=== PATIENT | male | born 1935 | race Caucasian/White ===

== ENCOUNTER 2018-01-21 10:50 | Inpatient (IN) | payer MEDICARE, SELFPAY ==
[2018-01-21] VITALS (107 sets, daily range): BP systolic 120–212; BP diastolic 60–161; PULSE 37–78; RESP 13–35; TEMP 36.5–37.1; O2SAT 91–97
--- NOTE | 2018-01-21 11:05 | DI.COMBO_ITS ---
SYMPTOM/DIAGNOSIS: SOB, ELEVATED D DIMER PA AND LATERAL CHEST: Comparison is made with 11/26/12. The heart size is within normal limits. The aorta is mildly tortuous. The lungs are well inflated and clear. No infiltrate or effusion is seen. There are no visible emphysematous or fibrotic changes. IMPRESSION: Negative chest xray. PE CHEST CT: CT angiography was performed with multi slice acquisition and multi planar and 3D reconstruction. Comparison is made with 11/26/12. The patient has a history of previous upper and lower lobe pulmonary emboli in 2012. Emboli are visible in both right upper and lower lobe branches as well as a branch to the right middle lobe. No left sided emboli are identified. There is some reflux of contrast into the IVC which could indicate some right ventricular strain. There is bi-atrial and left ventricular enlargement. The aorta shows mild calcification and appears intact. Gallstones are incidentally noted. The lungs appear clear. IMPRESSION: Emboli in right upper, lower lobes as well as right middle lobe.
--- NOTE | 2018-01-21 11:11 | ED.GENADUL_ITS ---
Discharge Plan Discharge Details Chief Complaint: SOB Reason For Visit: PE,NEW ONSET AFIB Admit Date/Time: 01/21/18 14:58 Admit Provider: Jeff Ochoa Attending Provider: Jeff Ochoa Primary Care Provider: Ramos Donnelly ED Provider: Paulino Rodriguez Discharge Data Discharge Date/Time-TO BE ENTERED AT DEPARTURE: 01/21/18 17:37 Medical Decision Making 82 y/o male who is in great shape and is very active with only HTN for cardiac history. History consistent with cardiac event, PE, CHF and/or other pulmonary process. CHADS2 2 risk is moderate with age >75 and HTN. ECG does show controlled rate of a-fib. He currently takes 325mg of ASA a day. He denies any recent travel, immobility, surgery, or trauma. No personal history of malignancy. Plan to establish IV and evaluate labs including D-Dimer and BNP. As well as chest x-ray. Pt takes 325 of aspirin a day. Elevated D-dimer plan to CT for PE. Pt and notified. B/P remains high. Consider Lasix for elevated BNP and which would help with B/P. Discussed CT results with Suresh: Emboli in right upper, lower lobes as well as right middle lobe. Discussed with Pt and . With new a-fib and PE they agree to admission. Discussed with Dr. Ochoa he agrees to admit patient for further testing and anticoagulation. Imaging Data Radiologic Study: Imaging: X-Ray and CT Scan My impression: No acute pathology on x-ray. Radiologist's impression: PA AND LATERAL CHEST: Comparison is made with 11/26/12. The heart size is within normal limits. The aorta is mildly tortuous. The lungs are well inflated and clear. No infiltrate or effusion is seen. There are no visible emphysematous or fibrotic changes. IMPRESSION: Negative chest xray. CT Scan: Comparison is made with 11/26/12. The patient has a history of previous upper and lower lobe pulmonary emboli in 2012. Emboli are visible in both right upper and lower lobe branches as well as a branch to the right middle lobe. No left sided emboli are identified. There is some reflux of contrast into the IVC which could indicate some right ventricular strain. There is bi-atrial and left ventricular enlargement. The aorta shows mild calcification and appears intact. Gallstones are incidentally noted. The lungs appear clear. IMPRESSION: Emboli in right upper, lower lobes as well as right middle lobe. Lab Data Lab results reviewed: Yes I reviewed the patient's lab results. Lab results narrative: Elevated ddimer and bnp and enlarged heart consistent with PE and heart failure. All other values and/are abnormalities are within accepting limits. ECG Data Attestation: I personally reviewed and interpreted this ECG (s) as follows: Interpretation: Reviewed with Dr. Oconnor. No acute ST changes but there is a- fib consistent on two different ECG's with a controlled rate. HPI General Date/Time Provider Initiated Documentation: 01/21/18 10:53 . Limitations to Documentation: no limitations . Information obtained by: patient and family . History of Present Illness 82 year old M presents to the emergency department with the chief complaint of sob, described as mild, HPI Narrative: 82 y/o male here with family concerns of acute SOB. He tells me he had to stop midway because of SOB this am on a walk he makes routinely without any problems. Denies cp but did have some dyspepsia prior to his walk but the walk did not make it worse and does not have it now. Spouse tried to remind him he also c/o a little dizziness. He has significant history for DVT/ PE five years ago and treated with and completed Coumadin therapy. He also feels like he is retaining fluid over the last month or so. He completed Lasix therapy last year for excessive fluid he reports. He thinks he strained his back a few days ago. 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 He denies any recent illness. Related Data Home Medications Medication Instructions Recorded Confirmed aspirin 325 mg PO DAILY tab-cap 12/25/13 01/21/18 vitamins A,C,[id number] [Icaps 2 ea PO BID 06/16/16 01/21/18 Areds Softgel] oxybutynin chloride 5 mg PO DAILY #90 tab-cap 06/05/17 01/21/18 tamsulosin 2 tab PO DAILY #180 cap 06/07/17 01/21/18 lisinopril 20 mg PO DAILY #90 tab-cap 06/21/17 01/21/18 magnesium oxide 400 mg PO DAILY #90 tab 06/21/17 01/21/18 omeprazole 20 mg PO Every Other Day #90 06/21/17 01/21/18 tab-cap Previous Rx's Medication Instructions Recorded oxybutynin chloride 5 mg PO DAILY #90 tab-cap 06/05/17 tamsulosin 2 tab PO DAILY #180 cap 06/07/17 lisinopril 20 mg PO DAILY #90 tab-cap 06/21/17 magnesium oxide 400 mg PO DAILY #90 tab 06/21/17 omeprazole 20 mg PO Every Other Day #90 06/21/17 tab-cap Allergies Allergy/AdvReac Type Severity Reaction Status Date / Time No Known Allergies Allergy Unverified 01/21/18 10:55 General Stated Complaint: SOB SEJAL: 3 Review of Systems Eyes Reports system reviewed and no additional complaints, except as docu ENT Reports system reviewed and no additional complaints, except as docu and Reports dizziness Cardiovascular Reports dyspnea on exertion Respiratory Reports dyspnea on exertion Gastrointestinal Reports dyspepsia Genitourinary Reports system reviewed and no additional complaints, except as docu Musculoskeletal Reports back pain Integumentary/Breasts Reports system reviewed and no additional complaints, except as docu Neurologic Reports dizziness Hematologic/Lymphatic Reports system reviewed and no additional complaints, except as docu PFSH Atrial fibrillation (Acute) Diverticulosis (Chronic) History of deep venous thrombosis or pulmonary embolus (Acute) GERD (gastroesophageal reflux disease) (Chronic) Pulmonary embolism (Acute 11/26/12) Benign hypertension (Chronic) Hyperlipidemia (Chronic) Benign prostatic hypertrophy without outflow obstruction (Chronic) Family History Mother Essential hypertension Hyperlipidemia Father No problems noted. Sister No problems noted. Grandfather No problems noted. Grandfather No problems noted. Grandmother Stroke Grandmother No problems noted. Brother Diabetes Essential hypertension Brother No problems noted. Extraction of cataract Repair of inguinal hernia (~1998) Family History Mother Essential hypertension Hyperlipidemia Father No problems noted. Sister No problems noted. Grandfather No problems noted. Grandfather No problems noted. Grandmother Stroke Grandmother No problems noted. Brother Diabetes Essential hypertension Brother No problems noted. Medical History Atrial fibrillation (Acute) Diverticulosis (Chronic) History of deep venous thrombosis or pulmonary embolus (Acute) GERD (gastroesophageal reflux disease) (Chronic) Pulmonary embolism (Acute 11/26/12) Benign hypertension (Chronic) Hyperlipidemia (Chronic) Benign prostatic hypertrophy without outflow obstruction (Chronic) Social History Smoking/Tobacco Use Status: Never Surgical History Extraction of cataract Repair of inguinal hernia (~1998) Social History Smoking/Tobacco Use Status: Never Exam Const General: cooperative, healthy appearing, comfortable and no acute distress Orientation: alert, awake and oriented x3 HENMT Head: atraumatic Ears: hearing grossly normal bilaterally (with bilateral hearing devices), external ears normal and TM's normal bilaterally General nose exam: external nose normal and nares normal Mouth: oral mucosae normal and moist mucous membranes Eyes General: appearance normal, both eyes and all related structures Neck Neck: normal visual inspection, full ROM and no lymphadenopathy Resp Effort & Inspection: normal respiratory effort Auscultation: clear to auscultation bilaterally Cardio Jugular venous pressure: no JVD Rate: regular rate Rhythm: regular rhythm Heart Sounds: S1 normal, S2 normal and no murmurs GI Palpation: soft and nontender Back/Spine/Pelvis Back: No back tenderness Skin General skin exam: no rashes or lesions noted Neuro General: alert, awake, oriented x3 and gait normal Extrem General: normal to inspection, full ROM, normal capillary refill and no edema Psych Appearance: grossly normal Speech and Movement: speech and movement normal Mood: congruent mood Affect: normal affect Course Vital Signs Temperature 36.5 C 01/21/18 10:53 Pulse 65 01/21/18 10:53 Respiratory Rate 18 01/21/18 10:53 Blood Pressure 212/90 H 01/21/18 10:53 Pulse Oximetry 94 L 01/21/18 10:53 Temperature 36.5 C 01/21/18 10:53 Temperature Source Temporal Artery Scan 01/21/18 10:53 Pulse 65 01/21/18 10:53 Respiratory Rate 18 01/21/18 10:53 Respiratory Effort Non-Labored 01/21/18 10:53 Blood Pressure 212/90 H 01/21/18 10:53 Blood Pressure Position Sitting 01/21/18 10:53 Pulse Oximetry 94 L 01/21/18 10:53 Oxygen Delivery Method Room Air 01/21/18 10:53 Oxygen Flow Rate 0 01/21/18 10:53 Pain Level 0 01/21/18 10:53
[2018-01-21 11:52] LABS: Abs Immature Grans 0.03 k/cumm (0.0-0.09); Absolute Basophil Count 0.03 k/cumm (0.0-0.2); Absolute Eosinophil Count 0.07 k/cumm (0.0-0.7); Absolute Lymphocyte Count 1.21 k/cumm (1.2-3.4); Absolute Monocyte Count 0.59 k/cumm (0.11-0.7); Basophils % 0.4; Eosinophils % 0.9; HCT 49.2 % (40.0-50.0); HGB 17.1 g/dL (13.5-17.5); Immature Grans % 0.4; Lymphocytes % 14.7; Mean Corp. HGB Concentration 34.8 g/dL (32.0-36.0); Mean Corpuscular Hemoglobin 29.6 pg (27.0-33.0); Mean Corpuscular Volume 85.1 fL (80-95); Mean Platelet Volume 11.2 fL (8.0-11.0); Monocytes % 7.2; Neutrophils % 76.4; Platelet Count 131 x1000/uL (130-400); RBC 5.78 m/cumm (4.50-6.00); RBC Distribution Width 13.1 % (11.8-14.1); White Blood Cell Count 8.23 k/cumm (4.4-10.8)
[2018-01-21 12:15] LABS: ALT 34 U/L (12-78); AST 32 U/L (15-37); Albumin 3.7 g/dL (3.4-5.0); Alkaline Phosphatase 96 U/L (46-116); Anion Gap 10.6 mmol/L (3-11); BUN 20 mg/dL (7-18); Bilirubin, Total 0.7 mg/dL (0.2-1.0); CO2 26.4 mmol/L (21.0-32.0); CREATININE 1.11 mg/dL (0.70-1.30); Chloride 101 mmol/L (98-107); Glucose 270 mg/dL (70-100); Magnesium 1.7 mg/dL (1.8-2.4); NT-proBNP 1378 pg/mL; Sodium 138 mmol/L (136-145); Total Protein 7.6 g/dL (6.4-8.2); Troponin I 0.02 ng/mL (0.00-0.06)
[2018-01-21 12:27] LABS: D-Dimer 4244 ng/mlFEU (<500)
[2018-01-21 15:51] LABS: Troponin I 0.04 ng/mL (0.00-0.06)
[2018-01-21 16:48] LABS: Bilirubin Negative (Negative); Blood Trace-lysed (Negative); Clarity Clear; Glucose 100 mg/dL (Negative); Ketones Negative (Negative); Leukocyte Esterase Negative (Negative); Nitrite Negative (Negative); Specific Gravity 1.015 (1.005-1.025); Urobilinogen 0.2 EU/dL (Up TO 0.2); pH 6.5 (5-8)
[2018-01-21 17:07] LABS: Bacteria Negative HPF (Negative); C & S Indicated? No; Casts Negative LPF (Negative); Crystals Negative HPF (Negative); Epithelial Cells Negative HPF (Negative); Mucus Negative (Negative); Other Cells Negative (Negative); RBC 0-2 (0-2); WBC 0-2 HPF (0-5)
--- NOTE | 2018-01-21 18:14 | W.PM.HP.N ---
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 Unsure of etiology, but denies any recent travel, immobility, surgery, or trauma. No personal history of malignancy, and no red flag on ROS's. Initiate heparin gtt, and check ECHO given potential right heart strain by CT - will also obtain an ECHO, and CT a/p to rule out any evidence of malignancy. Will also check a lower extremity ultrasound for additional clot burden. Currently hemodynamically stable. (2) Atrial fibrillation: Current visit: Yes Status: Acute New diagnosis. Unsure of duration of afib, but may be acute in setting of acute PE and heart strain in patient with evidence of significant biatrial enlargement on ECHO from 2012. No role for indigo agent at this time as patient borderline to overtly bradycardic. Anticoagulation as above. (3) Benign hypertension: Current visit: Yes Status: Chronic Noted. Continue BRI-I and monitor blood pressure in setting of acute PE. (4) Benign prostatic hypertrophy without outflow obstruction: Current visit: Yes Status: Chronic Continue alpha andie. (5) GERD (gastroesophageal reflux disease): Current visit: Yes Status: Chronic Continue home PPI therapy. (6) History of deep venous thrombosis or pulmonary embolus: Current visit: Yes Status: Acute Treatment and assessment as above. History of Present Illness Chief Complaint: Dyspnea Narrative: Very pleasant 82 year old man with a prior history of DVT/PE presents to [facility] Emergency Department with complaint of acute onset dyspnea. Mr. Weaver has a history of HTN, high cholesterol, BPH, GERD, and diverticulosis. He presented to this hospital in 2012 with a new onset of DVT and PE, thought provoked secondary to immobility from a lengthy bus ride to [place]. He reports being treated with Coumadin for one year, and then off ever since. Today he had onset of dyspnea rather acutely, presenting to the ED for further evaluation. His vitals and labs were fairly unremarkable, but he was noted to be in Afib with a controlled rate, being a new diagnosis for him. Owing to his history of DVT/PE a DDimer was obtained and elevated, with subsequent CT angiogram showing evidence for right upper lobe, middle lobe, and lower lobe pulmonary emboli, with potential right heart strain. Given the above findings Mr. Weaver was referred for admission for further evaluation and treatment. Review of Systems Review of Systems All systems reviewed & are unremarkable except as noted in HPI and below and Unobtainable due to (Lower extremity swelling) PFSH Atrial fibrillation (Acute) Diverticulosis (Chronic) History of deep venous thrombosis or pulmonary embolus (Acute) GERD (gastroesophageal reflux disease) (Chronic) Pulmonary embolism (Acute 11/26/12) Benign hypertension (Chronic) Hyperlipidemia (Chronic) Benign prostatic hypertrophy without outflow obstruction (Chronic) Family History Mother Essential hypertension Hyperlipidemia Father No problems noted. Sister No problems noted. Grandfather No problems noted. Grandfather No problems noted. Grandmother Stroke Grandmother No problems noted. Brother Diabetes Essential hypertension Brother No problems noted. Extraction of cataract Repair of inguinal hernia (~1998) Family History Mother Essential hypertension Hyperlipidemia Father No problems noted. Sister No problems noted. Grandfather No problems noted. Grandfather No problems noted. Grandmother Stroke Grandmother No problems noted. Brother Diabetes Essential hypertension Brother No problems noted. Medical History Atrial fibrillation (Acute) Diverticulosis (Chronic) History of deep venous thrombosis or pulmonary embolus (Acute) GERD (gastroesophageal reflux disease) (Chronic) Pulmonary embolism (Acute 11/26/12) Benign hypertension (Chronic) Hyperlipidemia (Chronic) Benign prostatic hypertrophy without outflow obstruction (Chronic) Social History Smoking/Tobacco Use Status: Never Surgical History Extraction of cataract Repair of inguinal hernia (~1998) Social History Smoking/Tobacco Use Status: Never Meds Home Medications Medication Instructions Recorded Confirmed Type aspirin 325 mg PO DAILY tab-cap 12/25/13 01/21/18 History vitamins A,C,[id number] [Icaps 2 ea PO BID 06/16/16 01/21/18 History Areds Softgel] oxybutynin chloride 5 mg PO DAILY #90 tab-cap 06/05/17 01/21/18 Rx tamsulosin 2 tab PO DAILY #180 cap 06/07/17 01/21/18 Rx lisinopril 20 mg PO DAILY #90 tab-cap 06/21/17 01/21/18 Rx magnesium oxide 400 mg PO DAILY #90 tab 06/21/17 01/21/18 Rx omeprazole 20 mg PO Every Other Day #90 06/21/17 01/21/18 Rx tab-cap Allergies Allergy/AdvReac Type Severity Reaction Status Date / Time No Known Allergies Allergy Unverified 01/21/18 10:55 Exam Narrative Exam Narrative: General: Patient appears comfortable, AAOX3, NAD Neck: Supple CV: Irregularly Irregular, nontachycardic, S1S2, No rubs, murmurs, or gallops. Pulmonary: Clear to auscultation bilaterally, no crackles, wheezing, or rhonchi Abdomen: + Bowel Sounds, soft, nontender, nondistended Vascular: 1+ RLE edema, 2+ LLE Edema Neurologic: CN II-XII grossly intact. No focal deficits. Psych: Normal mood and affect. Results Imaging Chest x-ray: report reviewed Abdomen CT scan report/results: report reviewed Additional studies: Exam(s) a CT:CT chest PE CTA a RAD:XR chest 2V PA & lateral SYMPTOM/DIAGNOSIS: SOB, ELEVATED D DIMER PA AND LATERAL CHEST: Comparison is made with 11/26/12. The heart size is within normal limits. The aorta is mildly tortuous. The lungs are well inflated and clear. No infiltrate or effusion is seen. There are no visible emphysematous or fibrotic changes. IMPRESSION: Negative chest xray. PE CHEST CT: CT angiography was performed with multi slice acquisition and multi planar and 3D reconstruction. Comparison is made with 11/26/12. The patient has a history of previous upper and lower lobe pulmonary emboli in 2012. Emboli are visible in both right upper and lower lobe branches as well as a branch to the right middle lobe. No left sided emboli are identified. There is some reflux of contrast into the IVC which could indicate some right ventricular strain. There is bi-atrial and left ventricular enlargement. The aorta shows mild calcification and appears intact. Gallstones are incidentally noted. The lungs appear clear. IMPRESSION: Emboli in right upper, lower lobes as well as right middle lobe. Labs : 01/21/18 11:35 01/21/18 11:35 Laboratory Results - last 24 hr 01/21/18 01/21/18 01/21/18 11:35 11:35 11:35 WBC 8.23 RBC 5.78 Hgb 17.1 Hct 49.2 MCV 85.1 MCH 29.6 MCHC 34.8 RDW 13.1 Plt Count 131 MPV 11.2 H Immature Gran % 0.4 Neutrophils % 76.4 Lymphocytes % 14.7 Monocytes % 7.2 Eosinophils % 0.9 Basophils % 0.4 Absolute Neutrophils 6.30 Absolute Lymphocytes 1.21 Absolute Monocytes 0.59 Absolute Eosinophils 0.07 Absolute Basophils 0.03 D-Dimer 4244 H Sodium 138 Potassium 4.0 Chloride 101 Carbon Dioxide 26.4 Anion Gap 10.6 BUN 20 H Creatinine 1.11 Estimated GFR/1.73 m2 >= 60.00 Glucose 270 H Calcium 9.0 Magnesium 1.7 L Total Bilirubin 0.7 AST 32 ALT 34 Alkaline Phosphatase 96 Troponin I 0.02 NT-Pro-B Natriuret Pep 1378 H Total Protein 7.6 Albumin 3.7 Urine Color Urine Clarity Urine pH Ur Specific [place] Urine Protein Urine Ketones Urine Blood Urine Nitrite Urine Bilirubin Urine Urobilinogen Ur Leukocyte Esterase Urine RBC Urine WBC Ur Epithelial Cells Urine Crystals Urine Bacteria Urine Casts Urine Mucus Urine Other Ur Culture Indicated? Urine Glucose 01/21/18 01/21/18 15:20 16:30 WBC RBC Hgb Hct MCV MCH MCHC RDW Plt Count MPV Immature Gran % Neutrophils % Lymphocytes % Monocytes % Eosinophils % Basophils % Absolute Neutrophils Absolute Lymphocytes Absolute Monocytes Absolute Eosinophils Absolute Basophils D-Dimer Sodium Potassium Chloride Carbon Dioxide Anion Gap BUN Creatinine Estimated GFR/1.73 m2 Glucose Calcium Magnesium Total Bilirubin AST ALT Alkaline Phosphatase Troponin I 0.04 NT-Pro-B Natriuret Pep Total Protein Albumin Urine Color Yellow Urine Clarity Clear Urine pH 6.5 Ur Specific [place] 1.015 Urine Protein 100 H Urine Ketones Negative Urine Blood Trace-lysed H Urine Nitrite Negative Urine Bilirubin Negative Urine Urobilinogen 0.2 Ur Leukocyte Esterase Negative Urine RBC 0-2 Urine WBC 0-2 Ur Epithelial Cells Negative Urine Crystals Negative Urine Bacteria Negative Urine Casts Negative Urine Mucus Negative Urine Other Negative Ur Culture Indicated? No Urine Glucose 100 Last Vital Signs Temp 37.1 C 01/21/18 17:40 Pulse 55 L 01/21/18 17:40 Resp 28 H 01/21/18 17:40 BP 167/74 H 01/21/18 17:40 Pulse Ox 95 01/21/18 17:40
[2018-01-21] MEDS: Magnesium Oxide 400 MG TAB PO (21:12)
[2018-01-21] MEDS: Tamsulosin 0.4 MG CAPCR PO (21:12)
[2018-01-21] MEDS: Lisinopril 20 MG TAB PO (21:13)
[2018-01-21] MEDS: Oxybutynin-CR 5 MG TABCR PO (21:13)
--- NOTE | 2018-01-21 23:37 | NUR.NOTE ---
Lab contacted. Ptt not complete at this time. Machine is having issues and lab is running QC's on it now will call with update soon. Nursing Note:
[2018-01-22] VITALS (67 sets, daily range): BP systolic 127–183; BP diastolic 49–92; PULSE 34–70; RESP 13–28; TEMP 36–36.8; O2SAT 90–97
[2018-01-22 07:27] LABS: Abs Immature Grans 0.03 k/cumm (0.0-0.09); Absolute Basophil Count 0.03 k/cumm (0.0-0.2); Absolute Eosinophil Count 0.12 k/cumm (0.0-0.7); Absolute Lymphocyte Count 2.22 k/cumm (1.2-3.4); Absolute Monocyte Count 0.69 k/cumm (0.11-0.7); Absolute Neutrophil Count 4.89 k/cumm (1.2-6.7); Basophils % 0.4; Eosinophils % 1.5; HCT 46.8 % (40.0-50.0); HGB 16.1 g/dL (13.5-17.5); Immature Grans % 0.4; Lymphocytes % 27.8; Mean Corp. HGB Concentration 34.4 g/dL (32.0-36.0); Mean Corpuscular Hemoglobin 29.2 pg (27.0-33.0); Mean Corpuscular Volume 84.8 fL (80-95); Mean Platelet Volume 11.5 fL (8.0-11.0); Monocytes % 8.6; Neutrophils % 61.3; Platelet Count 119 x1000/uL (130-400); RBC 5.52 m/cumm (4.50-6.00); RBC Distribution Width 13.2 % (11.8-14.1); White Blood Cell Count 7.98 k/cumm (4.4-10.8)
[2018-01-22 07:36] LABS: Anion Gap 9.2 mmol/L (3-11); BUN 19 mg/dL (7-18); CO2 27.8 mmol/L (21.0-32.0); CREATININE 0.92 mg/dL (0.70-1.30); Calcium 8.7 mg/dL (8.5-10.1); Chloride 102 mmol/L (98-107); Glucose 178 mg/dL (70-100); Magnesium 1.7 mg/dL (1.8-2.4); Potassium 3.8 mmol/L (3.5-5.1); Sodium 139 mmol/L (136-145)
--- NOTE | 2018-01-22 07:40 | PDOC.CMIN ---
- If Service Date Differs Date of service: 01/22/18 Time of Service: 07:40 Care Management Initial Assess REASON FOR HOSPITALIZATION:: PE, New Onset A-fib. PAST MEDICAL HISTORY/PAST SURGICAL HISTORY:: A-fib, benign hypertension, BPH, diverticulitis, GERD, hyperlipidemia, PE. Surgical hx: extraction of cataract, repair of hernia. PREVIOUS FUNCTIONAL STATUS/SOCIAL/FAMILY SUPPORTS:: Eleno resides in [place] with his , Mallory who volunteers at [facility]. He is independent with his ADLs and transportation and utilizes a walking stick when the sidewalks are slick or wet. CURRENT FUNCTIONAL STATUS:: Eleno is sitting in his chair in the ICU when CM visits this afternoon. He is being discharged later today and will have follow up appointments scheduled prior to discharge. Eleno will be discharging with a prescription for Eliquis. CM faxed script to [facility] with 30 day coupon. Eleno's cost for the medication will be $7.73 for a month's prescription. Eleno is aware of this. ADVANCE DIRECTIVES:: On file at [facility]. Health Care Agent: Aimee Valles. Has patient been provided with information about the portal?: Yes Did the patient sign up for the portal?: No CODE STATUS:: Full Code INSURANCE COVERAGE / FINANCIAL ISSUES:: [facility] [employer], Medicare. CURRENT HOME/COMMUNITY SERVICES/EQUIPMENT:: No current home or community services. Walking stick. PRIMARY CARE PHYSICIAN:: Ramos Donnelly MD. POTENTIAL DISCHARGE NEEDS:: Follow up appointment with PCP. PATIENT/FAMILY EDUCATION NEEDS:: Discharge education, any limitations, and follow up plan of care. Ask Me Three discussion. ANTICIPATED BARRIERS TO DISCHARGE:: No anticipated barriers to discharge. TRANSPORTATION:: Eleno will transport via private vehicle with his , Mallory. PLAN:: Eleno will discharge when medically ready per MD. Anticipate patient will discharge with no services and follow up with his PCP. CM will continue to offer support to patient and care team regarding discharge planning and disposition.
--- NOTE | 2018-01-22 07:50 | INITIAL_ITS ---
- If Service Date Differs Date of service: 01/22/18 Time of Service: 07:40 Care Management Initial Assess REASON FOR HOSPITALIZATION:: PE, New Onset A-fib. PAST MEDICAL HISTORY/PAST SURGICAL HISTORY:: A-fib, benign hypertension, BPH, diverticulitis, GERD, hyperlipidemia, PE. Surgical hx: extraction of cataract, repair of hernia. PREVIOUS FUNCTIONAL STATUS/SOCIAL/FAMILY SUPPORTS:: Eleno resides in [place] with his , Mallory who volunteers at [facility]. He is independent with his ADLs and transportation and utilizes a walking stick when the sidewalks are slick or wet. CURRENT FUNCTIONAL STATUS:: Eleno is sitting in his chair in the ICU when CM visits this afternoon. He is being discharged later today and will have follow up appointments scheduled prior to discharge. Eleno will be discharging with a prescription for Eliquis. CM faxed script to [facility] with 30 day coupon. Eleno's cost for the medication will be $7.73 for a month's prescription. Eleno is aware of this. ADVANCE DIRECTIVES:: On file at [facility]. Health Care Agent: Aimee Valles. Has patient been provided with information about the portal?: Yes Did the patient sign up for the portal?: No CODE STATUS:: Full Code INSURANCE COVERAGE / FINANCIAL ISSUES:: [facility] [employer], Medicare. CURRENT HOME/COMMUNITY SERVICES/EQUIPMENT:: No current home or community services. Walking stick. PRIMARY CARE PHYSICIAN:: Ramos Donnelly MD. POTENTIAL DISCHARGE NEEDS:: Follow up appointment with PCP. PATIENT/FAMILY EDUCATION NEEDS:: Discharge education, any limitations, and follow up plan of care. Ask Me Three discussion. ANTICIPATED BARRIERS TO DISCHARGE:: No anticipated barriers to discharge. TRANSPORTATION:: Eleno will transport via private vehicle with his , Mallory. PLAN:: Eleno will discharge when medically ready per MD. Anticipate patient will discharge with no services and follow up with his PCP. CM will continue to offer support to patient and care team regarding discharge planning and disposition.
[2018-01-22] MEDS: Normal Saline Flush 10 ML SYR IVP (08:14)
[2018-01-22] MEDS: Tamsulosin 0.4 MG CAPCR PO (08:14)
[2018-01-22 08:23] LABS: PTT Activated 78.6 sec (21.0-31.4)
--- NOTE | 2018-01-22 09:08 | MERGE_ITS ---
*[facility]* *[facility]* [address] [place] [address] Date of study: 01/22/2018 Transthoracic Echocardiography M-mode, complete 2D, complete spectral Doppler, and color Doppler *STUDY CONCLUSIONS* Summary: 1. Left ventricle: The cavity size was normal. Wall thickness was at the upper limits of normal. Systolic function was normal. The estimated ejection fraction was 60-65%. Wall motion was normal; there were no regional wall motion abnormalities. 2. Mitral valve: There was mild regurgitation. 3. Left atrium: The atrium was mildly dilated. 4. Right ventricle: The cavity size was normal. Wall thickness was increased. Systolic function was normal. 5. Right atrium: The atrium was dilated. 6. Tricuspid valve: There was mild-moderate regurgitation. 7. Pulmonary arteries: Pulmonary systolic pressure was increased, in the range of 45mm Hg to 50mm Hg. *PATIENT PRESENTATION* Height: 180.3cm ((71in) ) S/D Pressure: 183 / 92 Weight: 92.1kg ((202.6lb) ) BSA: 2.17m^2 Test start time: 09:10 AM. Test stop time: 10:00 AM. PERFORMING Unknown ORDERING Jeff Ochoa REFERRING Jeff Ochoa PERFORMING [facility] MAIL SORTER RT Darryl Gao)(GABRIELLE)ROXY *PROCEDURE DATA* Procedure information: The patient was identified by two identifiers. This study was interpreted by [facility] [place] [facility]. Pertinent images and digital data are archived for permanent storage and are available for subsequent review. Comparison was made to the study of 11/28/2015. Study status: STAT. Transthoracic echocardiography. M-mode, complete 2D, complete spectral Doppler, and color Doppler. A Transthoracic Echocardiogram was performed. Scanning was performed from the parasternal, apical, subcostal, and suprasternal notch acoustic windows. Images were obtained using an [id number] cardiac ultrasound machine. Image quality was adequate. Study completion: The patient tolerated the procedure well. There were no complications. *CARDIAC ANATOMY* Left ventricle: The cavity size was normal. Wall thickness was at the upper limits of normal. Systolic function was normal. The estimated ejection fraction was 60-65%. Wall motion was normal; there were no regional wall motion abnormalities. The study was not technically sufficient to allow evaluation of LV diastolic dysfunction due to atrial fibrillation. Aortic valve: Trileaflet; normal thickness leaflets. Mobility was not restricted. Doppler: Transvalvular velocity was within the normal range. There was no stenosis. There was no significant regurgitation. VTI ratio of LVOT to aortic valve: 0.62. Valve area (VTI): 2.1cm^2. Indexed valve area (VTI): 1cm^2/m^2. Peak velocity ratio of LVOT to aortic valve: 0.59. Valve area (Vmax): 2cm^2. Indexed valve area (Vmax): 0.9cm^2/m^2. Mean velocity ratio of LVOT to aortic valve: 0.6. Valve area (Vmean): 2.1cm^2. Indexed valve area (Vmean): 0.9cm^2/m^2. Mean gradient (S): 4.2mm Hg. Peak gradient (S): 7.2mm Hg. Aorta: Aortic root: The aortic root was normal in size. Ascending aorta: The ascending aorta was normal in size. Mitral valve: Structurally normal valve. Mobility was not restricted. Doppler: Transvalvular velocity was within the normal range. There was no evidence for stenosis. There was mild regurgitation. Valve area by pressure half-time: 3.4cm^2. Indexed valve area by pressure half-time: 1.6cm^2/m^2. Peak gradient (D): 2mm Hg. Left atrium: The atrium was mildly dilated. Right ventricle: The cavity size was normal. Wall thickness was increased. Systolic function was normal. Pulmonic valve: Structurally normal valve. Doppler: Transvalvular velocity was within the normal range. There was no evidence for stenosis. There was no significant regurgitation. Peak gradient (S): 2.5mm Hg. Tricuspid valve: Structurally normal valve. Doppler: Transvalvular velocity was within the normal range. There was no evidence for stenosis. There was mild-moderate regurgitation. Pulmonary artery: Pulmonary systolic pressure was increased, in the range of 45mm Hg to 50mm Hg. Right atrium: The atrium was dilated. Pericardium: There was no pericardial effusion. Systemic veins: Inferior vena cava: Well visualized. The vessel was patent and normal in size. The respirophasic diameter changes were in the normal range (greater than or equal to 50%). Baseline ECG: Atrial fibrillation. Measurements Left ventricle Value Reference LV ID, ED, PLAX 5.1 cm 3.5 - 6.0 LV ID, ES, PLAX 3.3 cm 2.1 - 4.0 LV PW thickness, ED, PLAX 1.1 cm LV end-diastolic volume, 1-p A2C 91 ml LV ejection fraction, 1-p A2C 69 % LV end-diastolic volume, 1-p A4C 106 ml LV ejection fraction, 1-p A4C 61 % LV e', lateral 0.101 m/sec LV E/e', lateral 7 LV e', medial 0.088 m/sec LV E/e', medial 8 LV e', average 0.095 m/sec LV E/e', average 8 Ventricular septum Value Reference IVS thickness, ED, PLAX 1.0 cm LVOT Value Reference LVOT ID, A-P 2.1 cm LVOT area 3.4 cm^2 LVOT peak velocity, S 0.79 m/sec LVOT mean velocity, S 0.6 m/sec LVOT VTI, S 17.8 cm LVOT peak gradient, S 2.5 mm Hg LVOT mean gradient, S 1.6 mm Hg Stroke volume (SV), LVOT DP 61 ml Stroke index (SV/bsa), LVOT DP 28 ml/m^2 Aortic valve Value Reference Aortic valve peak velocity, S 1.3 m/sec Aortic valve mean velocity, S 0.99 m/sec Aortic valve VTI, S 29.0 cm Aortic mean gradient, S 4.2 mm Hg Aortic peak gradient, S 7.2 mm Hg VTI ratio, LVOT/AV 0.62 Aortic valve area, VTI 2.1 cm^2 Velocity ratio, peak, LVOT/AV 0.59 Aortic valve area, peak velocity 2 cm^2 Velocity ratio, mean, LVOT/AV 0.6 Aortic valve area, mean velocity 2.1 cm^2 Aortic valve area/bsa, mean velocity 0.9 cm^2/m^2 Aorta Value Reference Aortic root ID, ED 3.7 cm Ascending aorta ID, A-P, S 3.6 cm RVOT Value Reference RVOT VTI, S 14.8 cm Left atrium Value Reference LA ID, A-P, ES 5.1 cm LA ID/bsa, A-P (H) 2.4 cm/m^2 <=2.2 LA area, ES, A4C (H) 26.4 cm^2 8.8 - 23.4 LA area, ES, A2C 22 cm^2 LA volume/bsa, ES, 1-p A4C 47 ml/m^2 LA volume, ES, 2-p 80 ml LA volume/bsa, ES, 2-p 37 ml/m^2 LA/aortic root ratio 1.38 Mitral valve Value Reference Mitral E-wave peak velocity 0.71 m/sec Mitral deceleration time 220 ms 150 - 230 Mitral pressure half-time 64 ms Mitral peak gradient, D 2 mm Hg Mitral valve area, PHT, DP 3.4 cm^2 Tricuspid valve Value Reference Tricuspid regurg peak velocity 3.5 m/sec Tricuspid peak RV-RA gradient 49.5 mm Hg Right atrium Value Reference RA area, ES, A4C (H) 27.7 cm^2 8.3 - 19.5 Pulmonic valve Value Reference Pulmonic peak gradient, S 2.5 mm Hg Legend: (L) and (H) shar values outside specified reference range. I have personally reviewed the images and have reviewed and edited the reported findings. Electronically signed by Johny Fisher 01/22/2018 10:49
--- NOTE | 2018-01-22 10:40 | DI.US_ITS ---
SYMPTOM/DIAGNOSIS: ACUTE PE BILATERAL LOWER EXTREMITY ULTRASOUND: Right lower extremity ultrasound : Deep venous system is freely compressible. No thrombus is visible. Doppler venous wave form augments normally. IMPRESSION: Negative right lower extremity ultrasound. No evidence of DVT. Left lower extremity ultrasound: The femoral and popliteal veins are noncompressible and show visible thrombus. The visualized calf veins appear free of thrombus. The saphenous vein also appears free of thrombus. IMPRESSION: Deep venous thrombosis in the femoral and popliteal veins.
--- NOTE | 2018-01-22 11:00 | DI.CT_ITS ---
SYMPTOM/DIAGNOSIS: RECURRENT DVT/PE, RULE OUT MALIGNANCY CT ABDOMEN AND PELVIS: Comparison is made with PE CT dated 21 Jan 2018. Images were performed from the lung bases through the ischial tuberosities after IV and oral contrast. Pulmonary emboli are visible within right lower lobe pulmonary artery branches. The heart is enlarged. The lung bases are clear. A small hiatal hernia is noted. The gallbladder is distended with numerous stones. No gallbladder wall thickening or pericholecystic fluid is seen. There is no evidence of biliary dilatation. The liver, spleen and adrenals are unremarkable. The pancreas appears atrophic. There is a large cyst of the posterior right kidney as well as several small bilateral renal cysts. No suspicious masses or stones are seen. The prostate is enlarged, measuring 6.9 transverse by 5.9 AP by 6.3 cm cephalocaudad. There is mild diffuse bladder wall thickening. There are 2 stones in the dependent portion of the bladder , one measuring 1.2 cm and the other measuring 5 mm. There is extensive sigmoid diverticulosis. There is no evidence of diverticulitis. No mass is identified. The appendix appears normal. Prominent diverticula are also seen of the ascending colon. There has been previous right inguinal hernia repair. The aorta is normal in diameter and shows mild atherosclerotic changes. Degenerative changes are seen in the spine. No adenopathy is seen. IMPRESSION: Enlarged prostate, bladder wall thickening and bladder calculi. Extensive diverticulosis with no evidence of diverticulitis. No mass or adenopathy is identified.
[2018-01-22] MEDS: Omnipaque 350 MG/ML 100 ML BTL IJ (11:17)
[2018-01-22] MEDS: Breeza Beverage 473 ML BTL PO (11:18)
[2018-01-22] MEDS: Omnipaque 350 MG/ML 50 ML BTL IJ (11:18)
[2018-01-22] MEDS: Magnesium Oxide 400 MG TAB PO (12:33)
[2018-01-22] MEDS: Potassium Chloride 20 MEQ TABCR PO (12:33)
--- NOTE | 2018-01-22 15:19 | CHAPLAIN ---
Eleno was sitting up in his chair, having returned from tests, when I visited. He is to [facility] volunteer Mallory Owen. 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 He was pleasant and seems to be comfortable being here.
--- NOTE | 2018-01-22 15:50 | DSE_ITS ---
Date of service: 01/22/18 Time of Service: 15:47 DS: Diagnosis Discharge Diagnosis (1) Pulmonary embolism: Status: Acute (2) Atrial fibrillation: Status: Acute (3) Benign hypertension: Status: Chronic (4) Benign prostatic hypertrophy without outflow obstruction: Status: Chronic (5) GERD (gastroesophageal reflux disease): Status: Chronic (6) History of deep venous thrombosis or pulmonary embolus: Status: Acute Discharge Plan Discharge Details Reason For Visit: PE,NEW ONSET AFIB Admit Date/Time: 01/21/18 14:58 Admit Provider: Jeff Ochoa Attending Provider: Jeff Ochoa Primary Care Provider: Ramos Donnelly Hospital Course Hospital Course: CC: Dyspnea HPI: Very pleasant 82 year old man with a prior history of DVT/PE presents to [facility] Emergency Department with complaint of acute onset dyspnea. Mr. Weaver has a history of HTN, high cholesterol, BPH, GERD, and diverticulosis. He presented to this hospital in 2012 with a new onset of DVT and PE, thought provoked secondary to immobility from a lengthy bus ride to [place]. He reports being treated with Coumadin for one year, and then off ever since. Today he had onset of dyspnea rather acutely, presenting to the ED for further evaluation. His vitals and labs were fairly unremarkable, but he was noted to be in Afib with a controlled rate, being a new diagnosis for him. Owing to his history of DVT/PE a DDimer was obtained and elevated, with subsequent CT angiogram showing evidence for right upper lobe, middle lobe, and lower lobe pulmonary emboli, with potential right heart strain. Given the above findings Mr. Weaver was referred for admission for further evaluation and treatment. 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 Unsure of etiology, but denies any recent travel, immobility, surgery, or trauma. No personal history of malignancy, and no red flag on ROS's. CT Chest, abdomen, and pelvis without any evidence of malignancy - patient should undergo and complete malignancy work-up as outpatient and ensure his routine health maintenance screening is up to date. ECHO without evidence of RV failure. Hemodynamically stable and not oxygen requiring. Will transition heparin gtt to therapeutic dose Apixaban, and discharge patient. Also with evidence of LLE DVT, which the patient reports is the side of his prior clot as well. (2) Atrial fibrillation: New diagnosis. Unsure of duration of afib, but may be acute in setting of acute PE and heart strain in patient with evidence of biatrial enlargement. No role for indigo agent at this time as patient borderline to overtly bradycardic. Anticoagulation as above. Will discharge with planned follow-up with cardiology. (3) Benign hypertension: Noted. Continue BRI-I and monitor blood pressure in setting of acute PE. (4) Benign prostatic hypertrophy without outflow obstruction: Continue alpha andie. (5) GERD (gastroesophageal reflux disease): Continue home PPI therapy. (6) History of deep venous thrombosis or pulmonary embolus: Treatment and assessment as above. Home Meds and New Rx's Prescriptions: New apixaban [Eliquis] 5 mg Tablet 5 mg PO BID Qty: 70 RF: 0 Continue vitamins A,C,L-vcje-[id number] [ICaps AREDS] 1 EACH capsule 2 ea PO BID RF: 0 oxybutynin chloride 5 MG tablet extended release 24hr 5 mg PO DAILY Qty: 90 RF: 3 tamsulosin 0.4 MG capsule 2 tab PO DAILY Qty: 180 RF: 3 lisinopril 20 MG tablet 20 mg PO DAILY Qty: 90 RF: 4 magnesium oxide 400 MG tablet 400 mg PO DAILY Qty: 90 RF: 3 omeprazole 20 MG capsule,delayed release(DR/EC) 20 mg PO Every Other Day Qty: 90 RF: 4 Discontinued aspirin 325 MG tablet 325 mg PO DAILY RF: 0 Discharge Instructions Activity:: No strenuous activity Activity:: No strenuous activity Equipment/Supplies:: No Equipment Needed Exam Narrative Exam Narrative: General: Patient appears comfortable, AAOX3, NAD Neck: Supple CV: Irregularly Irregular, nontachycardic, S1S2, No rubs, murmurs, or gallops. Pulmonary: Clear to auscultation bilaterally, no crackles, wheezing, or rhonchi Abdomen: + Bowel Sounds, soft, nontender, nondistended Vascular: 1+ RLE edema, 2+ LLE Edema. Psych: Normal mood and affect. DS: Data Vitals/I&O Vitals and I&O: Vital Signs Temperature 36.4 C L 01/22/18 12:19 Temperature Source Temporal Artery Scan 01/22/18 12:19 Pulse 60 01/22/18 12:01 Pulse 56 L 01/22/18 12:01 Respiratory Rate 22 01/22/18 12:01 Respiratory Effort 01/22/18 12:19 Respiratory Depth Normal 01/22/18 12:19 Respiratory Pattern Normal 01/22/18 12:19 Blood Pressure 134/83 01/22/18 12:01 Blood Pressure Mean 96 01/22/18 12:01 Blood Pressure Position Supine 01/22/18 03:54 Pulse Oximetry 95 01/22/18 12:19 Oxygen Delivery Method Room Air 01/22/18 12:19 Oxygen Flow Rate 0 01/22/18 12:19 Pain Level 0 01/22/18 12:19 Intake & Output 01/21/18 01/22/18 01/22/18 23:59 11:59 23:59 Intake Total 210 / 210 1264.00 / 1264.00 240 / 240 Output Total 350 / 350 1050 / 1050 Balance -140 / -140 214.00 / 214.00 240 / 240 Weight 92.3 kg 93.1 kg Intake: IV 318.00 / 318.00 Oral 210 / 210 946 / 946 240 / 240 Output: Urine 350 / 350 1050 / 1050 Other: Urine Color Yellow Pale Yellow Urine Appearance Cloudy Clear Urine Odor Normal None Comment with stool Stool Occult Blood Negative Stool Size Large Stool Characteristics Soft Formed Brown Voiding Methods Urinal Urinal Completed studies during hospitalization [Text1]: Exam(s) a US:US echocardiogram *[facility]* *[facility] [place] [facility]* [address] [place] [address] Date of study: 01/22/2018 Transthoracic Echocardiography M-mode, complete 2D, complete spectral Doppler, and color Doppler *STUDY CONCLUSIONS* Summary: 1. Left ventricle: The cavity size was normal. Wall thickness was at the upper limits of normal. Systolic function was normal. The estimated ejection fraction was 60-65%. Wall motion was normal; there were no regional wall motion abnormalities. 2. Mitral valve: There was mild regurgitation. 3. Left atrium: The atrium was mildly dilated. 4. Right ventricle: The cavity size was normal. Wall thickness was increased. Systolic function was normal. 5. Right atrium: The atrium was dilated. 6. Tricuspid valve: There was mild-moderate regurgitation. 7. Pulmonary arteries: Pulmonary systolic pressure was increased, in the range of 45mm Hg to 50mm Hg. Exam(s) 01/22/2018 a US:US extremity venous BI SYMPTOM/DIAGNOSIS: ACUTE PE BILATERAL LOWER EXTREMITY ULTRASOUND: Right lower extremity ultrasound : Deep venous system is freely compressible. No thrombus is visible. Doppler venous wave form augments normally. IMPRESSION: Negative right lower extremity ultrasound. No evidence of DVT. Left lower extremity ultrasound: The femoral and popliteal veins are noncompressible and show visible thrombus. The visualized calf veins appear free of thrombus. The saphenous vein also appears free of thrombus. IMPRESSION: Deep venous thrombosis in the femoral and popliteal veins. Exam(s) 01/22/[address]:CT abdomen & pelvis w SYMPTOM/DIAGNOSIS: RECURRENT DVT/PE, RULE OUT MALIGNANCY CT ABDOMEN AND PELVIS: Comparison is made with PE CT dated 21 Jan 2018. Images were performed from the lung bases through the ischial tuberosities after IV and oral contrast. Pulmonary emboli are visible within right lower lobe pulmonary artery branches. The heart is enlarged. The lung bases are clear. A small hiatal hernia is noted. The gallbladder is distended with numerous stones. No gallbladder wall thickening or pericholecystic fluid is seen. There is no evidence of biliary dilatation. The liver, spleen and adrenals are unremarkable. The pancreas appears atrophic. There is a large cyst of the posterior right kidney as well as several small bilateral renal cysts. No suspicious masses or stones are seen. The prostate is enlarged, measuring 6.9 transverse by 5.9 AP by 6.3 cm cephalocaudad. There is mild diffuse bladder wall thickening. There are 2 stones in the dependent portion of the bladder , one measuring 1.2 cm and the other measuring 5 mm. There is extensive sigmoid diverticulosis. There is no evidence of diverticulitis. No mass is identified. The appendix appears normal. Prominent diverticula are also seen of the ascending colon. There has been previous right inguinal hernia repair. The aorta is normal in diameter and shows mild atherosclerotic changes. Degenerative changes are seen in the spine. No adenopathy is seen. IMPRESSION: Enlarged prostate, bladder wall thickening and bladder calculi. Extensive diverticulosis with no evidence of diverticulitis. No mass or adenopathy is identified. Exam(s) 01/21/[address]:CT chest PE CTA a RAD:XR chest 2V PA & lateral SYMPTOM/DIAGNOSIS: SOB, ELEVATED D DIMER PA AND LATERAL CHEST: Comparison is made with 11/26/12. The heart size is within normal limits. The aorta is mildly tortuous. The lungs are well inflated and clear. No infiltrate or effusion is seen. There are no visible emphysematous or fibrotic changes. IMPRESSION: Negative chest xray. PE CHEST CT: 01/21/2018 CT angiography was performed with multi slice acquisition and multi planar and 3D reconstruction. Comparison is made with 11/26/12. The patient has a history of previous upper and lower lobe pulmonary emboli in 2012. Emboli are visible in both right upper and lower lobe branches as well as a branch to the right middle lobe. No left sided emboli are identified. There is some reflux of contrast into the IVC which could indicate some right ventricular strain. There is bi-atrial and left ventricular enlargement. The aorta shows mild calcification and appears intact. Gallstones are incidentally noted. The lungs appear clear. IMPRESSION: Emboli in right upper, lower lobes as well as right middle lobe Labs on day of discharge: Labs from last 24 hours 01/22/18 01/22/18 01/22/18 16:00 15:00 08:00 WBC RBC Hgb Hct MCV MCH MCHC RDW Plt Count MPV Immature Gran % Neutrophils % Lymphocytes % Monocytes % Eosinophils % Basophils % Absolute Neutrophils Absolute Lymphocytes Absolute Monocytes Absolute Eosinophils Absolute Basophils APTT Pending Cancelled 78.6 H D Sodium Potassium Chloride Carbon Dioxide Anion Gap BUN Creatinine Estimated GFR/1.73 m2 Glucose Calcium Magnesium Troponin I Urine Color Urine Clarity Urine pH Ur Specific [place] Urine Protein Urine Ketones Urine Blood Urine Nitrite Urine Bilirubin Urine Urobilinogen Ur Leukocyte Esterase Urine RBC Urine WBC Ur Epithelial Cells Urine Crystals Urine Bacteria Urine Casts Urine Mucus Urine Other Ur Culture Indicated? Urine Glucose 01/22/18 01/22/18 01/21/18 06:35 06:35 22:00 WBC 7.98 RBC 5.52 Hgb 16.1 Hct 46.8 MCV 84.8 MCH 29.2 MCHC 34.4 RDW 13.2 Plt Count 119 L MPV 11.5 H Immature Gran % 0.4 Neutrophils % 61.3 Lymphocytes % 27.8 Monocytes % 8.6 Eosinophils % 1.5 Basophils % 0.4 Absolute Neutrophils 4.89 Absolute Lymphocytes 2.22 Absolute Monocytes 0.69 Absolute Eosinophils 0.12 Absolute Basophils 0.03 APTT Cancelled Sodium 139 Potassium 3.8 Chloride 102 Carbon Dioxide 27.8 Anion Gap 9.2 BUN 19 H Creatinine 0.92 Estimated GFR/1.73 m2 >= 60.00 Glucose 178 H D Calcium 8.7 Magnesium 1.7 L Troponin I Urine Color Urine Clarity Urine pH Ur Specific [place] Urine Protein Urine Ketones Urine Blood Urine Nitrite Urine Bilirubin Urine Urobilinogen Ur Leukocyte Esterase Urine RBC Urine WBC Ur Epithelial Cells Urine Crystals Urine Bacteria Urine Casts Urine Mucus Urine Other Ur Culture Indicated? Urine Glucose 01/21/18 01/21/18 01/21/18 21:50 16:30 15:20 WBC RBC Hgb Hct MCV MCH MCHC RDW Plt Count MPV Immature Gran % Neutrophils % Lymphocytes % Monocytes % Eosinophils % Basophils % Absolute Neutrophils Absolute Lymphocytes Absolute Monocytes Absolute Eosinophils Absolute Basophils APTT 125.0 H* Sodium Potassium Chloride Carbon Dioxide Anion Gap BUN Creatinine Estimated GFR/1.73 m2 Glucose Calcium Magnesium Troponin I 0.04 Urine Color Yellow Urine Clarity Clear Urine pH 6.5 Ur Specific [place] 1.015 Urine Protein 100 H Urine Ketones Negative Urine Blood Trace-lysed H Urine Nitrite Negative Urine Bilirubin Negative Urine Urobilinogen 0.2 Ur Leukocyte Esterase Negative Urine RBC 0-2 Urine WBC 0-2 Ur Epithelial Cells Negative Urine Crystals Negative Urine Bacteria Negative Urine Casts Negative Urine Mucus Negative Urine Other Negative Ur Culture Indicated? No Urine Glucose 100 PFSH Atrial fibrillation (Acute) Diverticulosis (Chronic) History of deep venous thrombosis or pulmonary embolus (Acute) GERD (gastroesophageal reflux disease) (Chronic) Pulmonary embolism (Acute 11/26/12) Benign hypertension (Chronic) Hyperlipidemia (Chronic) Benign prostatic hypertrophy without outflow obstruction (Chronic) Family History Mother Essential hypertension Hyperlipidemia Father No problems noted. Sister No problems noted. Grandfather No problems noted. Grandfather No problems noted. Grandmother Stroke Grandmother No problems noted. Brother Diabetes Essential hypertension Brother No problems noted. Extraction of cataract Repair of inguinal hernia (~1998) Family History Mother Essential hypertension Hyperlipidemia Father No problems noted. Sister No problems noted. Grandfather No problems noted. Grandfather No problems noted. Grandmother Stroke Grandmother No problems noted. Brother Diabetes Essential hypertension Brother No problems noted. Medical History Atrial fibrillation (Acute) Diverticulosis (Chronic) History of deep venous thrombosis or pulmonary embolus (Acute) GERD (gastroesophageal reflux disease) (Chronic) Pulmonary embolism (Acute 11/26/12) Benign hypertension (Chronic) Hyperlipidemia (Chronic) Benign prostatic hypertrophy without outflow obstruction (Chronic) Social History Smoking/Tobacco Use Status: Never Surgical History Extraction of cataract Repair of inguinal hernia (~1998) Social History Smoking/Tobacco Use Status: Never
--- NOTE | 2018-01-22 15:52 | PDOC.CMDIS ---
- If Service Date Differs Date of service: 01/22/18 Time of Service: 15:52 LACE Index Scoring Tool - Questions: Length of Stay (in days): 2 Acuity (Admit via E.D.?): Yes E.D. Visits: 1 - Answers: Total Score: 6 Risk of Readmission: Low Risk Care Management Discharge Reason for Hospitalization: PE, New Onset A-fib. Discharge Plan: Eleno will discharge home when medically ready per MD. Anticipate patient will discharge with no services and follow up with his PCP. Eleno will transport via private vehicle with his , Mallory. Patient/Family Education Needs: Discharge education, any limitations, and follow up plan of care. Ask Me Three discussion.
[2018-01-22 17:05] LABS: PTT Activated 42.7 sec (21.0-31.4)
[2018-01-22] MEDS: Apixaban 5 MG TAB PO (18:07)
--- NOTE | 2018-02-15 09:58 | ZIOP_ITS ---
ZIO Patch INTERPRETATION DATE OF DICTATION February 15, 2018 INDICATION Atrial fibrillation. Analysis time 13 days and 1 hour. Predominant underlying rhythm throughout monitoring period is atrial fibrillation. Average heart rare 48 beats per minute. Minimum heart rate 28 beats per minute, and max heart rate 174 beats per minute. 44 pauses with the longest lasting 3.9 seconds. The longest pauses are nocturnal. Rare isolated ventricular ectopy. NO NSVT. No patient triggered events. No diary entries. Overall atrial fibrillation with slow ventricular response and multiple pauses, the longest 3.9 seconds. Nilesh Solorio M.D. MARJORIE/randi T - 02/15/2018
== END 2018-01-22 18:30 | disposition home or self-care (01) | DRG 176 ==
LOC: ER 12:46 → ICU 17:42
PROVIDERS: Admitting Provider Internal Medicine; Emergency Provider Nurse Practitioner Family; PCP Family Medicine; Visit Provider Internal Medicine
DX: I26.99 Other pulmonary embolism without acute cor pulmonale (principal); I48.91 Unspecified atrial fibrillation; I10 Essential (primary) hypertension; I51.9 Heart disease, unspecified; N40.0 Benign prostatic hyperplasia without lower urinary tract symptoms; K21.9 Gastro-esophageal reflux disease without esophagitis; Z86.718 Personal history of other venous thrombosis and embolism; Z86.711 Personal history of pulmonary embolism; I51.7 Cardiomegaly; I08.1 Rheumatic disorders of both mitral and tricuspid valves
CPT/HCPCS: 36415; 71275; 80048; 80053; 93005; 93225; 93306; 99223; 99239; 99285; 71046; 74177; 81003; 81015; 83735; 83880; 84484; 85025; 85379; 85730; 93010; 93970; J3490; Q9967

== ENCOUNTER 2018-02-15 09:08 | Outpatient (CLI) | payer MEDICARE, SELFPAY | END 2018-02-15 09:28 | PROVIDERS: PCP Family Medicine; Referring Provider Family Medicine; Visit Provider Internal Medicine Cardiovascular Disease | DX: I48.91 Unspecified atrial fibrillation (principal) | CPT/HCPCS: 0298T ==

== ENCOUNTER 2018-07-01 03:00 | Outpatient (CLI) | payer MEDICARE, SELFPAY ==
[2018-07-01 11:57] LABS: Anion Gap 9.8 mmol/L (3-11); BUN 19 mg/dL (7-18); CO2 26.2 mmol/L (21.0-32.0); CREATININE 1.08 mg/dL (0.70-1.30); Calcium 8.5 mg/dL (8.5-10.1); Chloride 103 mmol/L (98-107); Glucose 226 mg/dL (70-100); Potassium 4.3 mmol/L (3.5-5.1); Sodium 139 mmol/L (136-145)
== END 2018-07-01 03:20 ==
PROVIDERS: PCP Family Medicine; Visit Provider Family Medicine
DX: I10 Essential (primary) hypertension (principal)
CPT/HCPCS: 36415; 80048

== ENCOUNTER 2019-07-10 03:37 | Outpatient (CLI) | payer MEDICARE, SELFPAY ==
[2019-07-10 10:11] LABS: Anion Gap 7.1 mmol/L (3-11); BUN 26 mg/dL (7-18); CO2 27.9 mmol/L (21.0-32.0); CREATININE 1.06 mg/dL (0.70-1.30); Calcium 9.4 mg/dL (8.5-10.1); Chloride 104 mmol/L (98-107); Glucose 203 mg/dL (74-106); Potassium 4.3 mmol/L (3.5-5.1); Sodium 139 mmol/L (136-145)
[2019-07-10 14:32] LABS: Hemoglobin A1C 6.5 % (3.8-5.6)
== END 2019-07-10 03:57 ==
PROVIDERS: PCP Family Medicine; Visit Provider Family Medicine
DX: I10 Essential (primary) hypertension (principal); E11.9 Type 2 diabetes mellitus without complications
CPT/HCPCS: 36415; 80048; 83036

== ENCOUNTER 2019-12-08 18:30 | Outpatient (REF) | payer MEDICARE, SELFPAY ==
--- NOTE | 2019-12-08 11:50 | SKI_PTH ---
PATIENT: Eleno Weaver LOC: [facility] U#:[id number] AGE/SX: 84/M ROOM: RE12/08/[address]: Manuel Zavaleta DO : 1935 BED: DIS: 12/08/2019 SPEC #: [id number] RECD: 12/08/19 18:32 STATUS: SHELDON REQ #: [id number] FERNIE: 12/08/19 11:[address]: Manuel Zavaleta DEPT: Surgical Specimen RECD BY: Keyana Powers ENTERED: 12/08/19 18:33 SP TYPE: LUCA MERRITT DR: AJ Scott Tissues: 1 - SKIN BIOPSY(SHAVE/PUNCH) 2 - SKIN BIOPSY(SHAVE/PUNCH) Procedures: SKIN LEVEL 4 Comments: [id number]
== END 2019-12-08 18:50 ==
LOC: LBN 18:30
PROVIDERS: PCP Nurse Practitioner Family; Visit Provider Otolaryngology Otolaryngology/Facial Plastic Surgery
DX: C44.311 Basal cell carcinoma of skin of nose (principal); C44.219 Basal cell carcinoma of skin of left ear and external auricular canal
CPT/HCPCS: 88305

== ENCOUNTER 2020-02-04 06:57 | Emergency (ER) | payer MEDICARE, SELFPAY ==
[2020-02-04 07:12] VITALS: BP 154/97; PULSE 60; RESP 20; TEMP 36.4; O2SAT 95
--- NOTE | 2020-02-04 07:30 | DI.CT_ITS ---
EXAM: CT ABDOMEN PELVIS WO CLINICAL HISTORY: constipation, rectal pain, r/o mass. TECHNIQUE: Imaging Protocol: Axial computed tomography images with coronal and sagittal reformatted images were created and reviewed. FINDINGS: ABDOMEN: Lung Bases: Chronic interstitial changes are seen in the lung bases. Liver: Normal density. No measurable mass. Gallbladder and biliary tract: There is a distended gallbladder measuring 6.1 cm in transverse diamet er. Gallstones are present. There is higher density fluid seen within the gallbladder. There is no biliary ductal dilatation. Pancreas: Normal density, no abnormal calcifications or inflammatory process. Spleen: Normal. Kidneys: Normal size, contour and axis.No radiodense stones or obstructive uropathy. Bilateral renal cysts. Adrenal glands: No mass is seen. Lymph nodes: Within normal limits. Abdominal Aorta: Abdominal portion non-dilated. Atherosclerosis. PELVIS: Bladder:Symmetric distention, no gross wall thickening. Bladder stones are present. The largest veronica ures 1.8 cm. Bowel: No obstruction or bowel wall thickening. There is a large amount of stool in the colon particu larly the rectal vault. No thickening of the wall of the rectum is seen. There is diverticulosis th roughout the colon but no evidence of acute diverticulitis. No evidence of appendicitis. Small hiat al hernia. Peritoneal cavity: No ascites, collection or mesenteric inflammatory response prior right inguinal he rnia repair. Reproductive organs: Enlarged prostate gland. Bones: Degenerative changes. Soft Tissues: Within normal limits. IMPRESSION: 1. Large amount of retained stool in the colon particularly the rectal vault. 2. Distended gallbladder with cholelithiasis and higher density material within the gallbladder which may reflect sludge. Gallbladder ultrasound may be obtained if clinically appropriate. 3. Enlarged prostate gland. 4. Urinary bladder stones. 5. Colonic diverticulosis but no evidence of acute diverticulitis. 6. Findings were discussed with the emergency department on the date of the examination. RADIATION DOSE DELIVERED: 995.35mGy.cm Total DLP DATA REPOSITORY: All CT scans at this facility are submitted to the National Radiology Data Registry (NRDR) Dose Index Registry (DIR) with the [employer] (ACR). RADIATION OPTIMIZATION: All CT scans at this facility use at least one of these dose optimization te chniques: automated exposure control; mA and/or kV adjustment per patient size (includes targeted exa ms where dose is matched to clinical indication); or iterative reconstruction.
--- NOTE | 2020-02-04 07:40 | W.ED.GENAD ---
Discharge Plan Disposition Patient Disposition: HOME Condition: Stable Discharge Details Clinical Impression: Constipation Primary Care Provider: Monica Hollingsworth ED Provider: Paulino Galvez Home Meds and New Rx's Prescriptions: New docusate calcium [Stool Softener (docusate robyn)] 240 mg capsule 240 mg PO BID Qty: 30 RF: 0 Continued finasteride 5 mg tablet 5 mg PO DAILY Qty: 90 RF: 4 magnesium oxide 400 mg (241.3 mg magnesium) tablet 400 mg PO DAILY Qty: 90 RF: 3 omeprazole 20 mg capsule,delayed release(DR/EC) 20 mg PO DAILY Qty: 90 RF: 4 lisinopril 30 mg tablet 30 mg PO DAILY Qty: 90 RF: 4 amlodipine 5 mg tablet 5 mg PO DAILY Qty: 90 RF: 4 metformin 500 mg tablet 500 mg PO BID Qty: 180 RF: 4 ICaps AREDS 1 EACH capsule 1 ea PO BID RF: 0 oxybutynin chloride 5 mg tablet extended release 24hr 5 mg PO DAILY Qty: 90 RF: 3 Eliquis 5 mg tablet 5 mg PO BID Qty: 180 RF: 4 tamsulosin 0.4 mg capsule 0.8 mg PO DAILY Qty: 180 RF: 3 (DME) OneTouch Ultra Blue Test Strip Strip See Rx Instructions .ROUTE .MEDSUPPLY Qty: 100 RF: 4 (DME) blood-glucose meter [OneTouch Ultra2 Meter] Misc See Rx Instructions .ROUTE .MEDSUPPLY Qty: 1 RF: 4 (DME) lancets [BD Ultra Fine Lancets] 33 gauge misc See Rx Instructions .ROUTE .MEDSUPPLY Qty: 100 RF: 4 Discharge Instructions Instructions: Constipation (ED) Additional Instructions: in addition to taking the docusate you can try taking milk of magnesia if you have abdominal pain, persistent vomit or feel more ill return to the emergency department follow up with your primary care provider within 1-2 weeks Medical Decision Making <Rommel Givens DO - Last Filed: 02/04/20 07:45> 84-year-old male with a past medical history of atrial fibrillation, hypertension, hearing loss, BPH, and presents today for evaluation constipation. Patient states that for the last 3 to 5 days he has not been able to have a regular bowel movement at all. Over the last 2-1/2 days he has not had any bowel movement. He did take 2 oral laxative/stool softener pills, this did not improve his symptoms. He was seen by his PCP 2 to 3 days ago, at that time there was no evidence of stool noted in the rectal vault. Patient denies fever or chills. He denies vomiting or nausea. No other complaints at this time. No other modifying factors. Physical exam demonstrates a large amount of stool in the rectal vault, was able to be broken up with the finger. No masses that I can palpate or appreciate otherwise. Abdomen is soft and nontender and nondistended otherwise. No signs of an acute surgical abdomen. Due to the patient's age, history of basal cell carcinoma and not commonly having issues with constipation we will get a CT scan for further evaluation of potential mass. Otherwise we will give a enema, monitor closely and reassess. I did go out and speak with the patient's as well and discussed the plan with her. The case will be signed out to my colleague for follow-up on CT scan and post enema. <Paulino Galvez MD - Last Filed: 02/04/20 09:42> pt's ct shows constipation and distended gallbladder with stones. He just received his enema and denies every having any abdominal pain and has no tenderness on abdominal exam anywhere with no ruq pain or tenderness. Do not feel u/s indicated of the gallbladder. Will reassess after results of UA UA shows microscopic hematuria likely from the bladder stones, no evidence of infection. He had a large bowel movement and still has no tenderness in the abdomen, did advised of the gallstones but no treatment needed unless symptoms develop. Will have him start stool softeners and follow up with pcp, return precautions given Imaging Data Radiologic Study: Attestation: I personally reviewed and interpreted this imaging study as follows: Imaging: CT Scan Radiologist's impression: IMPRESSION: 1. Large amount of retained stool in the colon particularly the rectal vault. 2. Distended gallbladder with cholelithiasis and higher density material within the gallbladder which may reflect sludge. Gallbladder ultrasound may be obtained if clinically appropriate. 3. Enlarged prostate gland. 4. Urinary bladder stones. 5. Colonic diverticulosis but no evidence of acute diverticulitis. 6. Findings were discussed with the emergency department on the date of the examination. Lab Data Lab results reviewed: Yes I reviewed the patient's lab results. HPI <Rommel Givens - Last Filed: 02/04/20 07:45> General Date/Time Provider Initiated Documentation: 02/04/20 07:22. HPI Narrative: 84-year-old male with a past medical history of atrial fibrillation, hypertension, hearing loss, BPH, and presents today for evaluation constipation. Patient states that for the last 3 to 5 days he has not been able to have a regular bowel movement at all. Over the last 2-1/2 days he has not had any bowel movement. He did take 2 oral laxative/stool softener pills, this did not improve his symptoms. He was seen by his PCP 2 to 3 days ago, at that time there was no evidence of stool noted in the rectal vault. Patient denies fever or chills. He denies vomiting or nausea. No other complaints at this time. No other modifying factors. Related Data Home Medications Medication Instructions Recorded Confirmed ICaps AREDS 1 ea PO BID 06/16/16 02/04/20 metformin 500 mg tablet 500 mg PO BID #180 tab 01/02/19 02/04/20 oxybutynin chloride 5 mg 5 mg PO DAILY #90 tab-cap 05/21/19 02/04/20 tablet,extended release 24 hr apixaban 5 mg tablet 5 mg PO BID #180 tab 06/11/19 02/04/20 tamsulosin 0.4 mg capsule 0.8 mg PO DAILY #180 cap 06/25/19 02/04/20 finasteride 5 mg tablet 5 mg PO DAILY #90 tab 07/04/19 02/04/20 lisinopril 30 mg tablet 30 mg PO DAILY #90 tab-cap 07/04/19 02/04/20 magnesium oxide 400 mg (241.3 mg 400 mg PO DAILY #90 tab 07/04/19 02/04/20 magnesium) tablet omeprazole 20 mg capsule,delayed 20 mg PO DAILY #90 tab-cap 07/04/19 02/04/20 release amlodipine 5 mg tablet 5 mg PO DAILY #90 tab 10/31/19 02/04/20 blood sugar diagnostic #100 ea 12/03/19 01/30/20 blood-glucose meter #1 ea 12/03/19 01/30/20 lancets 33 gauge #100 ea 12/03/19 01/30/20 docusate calcium [Stool Softener 240 mg PO BID #30 cap 02/04/20 (docusate robyn)] Previous Rx's Medication Instructions Recorded metformin 500 mg tablet 500 mg PO BID #180 tab 01/02/19 oxybutynin chloride 5 mg 5 mg PO DAILY #90 tab-cap 05/21/19 tablet,extended release 24 hr apixaban 5 mg tablet 5 mg PO BID #180 tab 06/11/19 tamsulosin 0.4 mg capsule 0.8 mg PO DAILY #180 cap 06/25/19 finasteride 5 mg tablet 5 mg PO DAILY #90 tab 07/04/19 lisinopril 30 mg tablet 30 mg PO DAILY #90 tab-cap 07/04/19 magnesium oxide 400 mg (241.3 mg 400 mg PO DAILY #90 tab 07/04/19 magnesium) tablet omeprazole 20 mg capsule,delayed 20 mg PO DAILY #90 tab-cap 07/04/19 release amlodipine 5 mg tablet 5 mg PO DAILY #90 tab 10/31/19 blood sugar diagnostic #100 ea 12/03/19 blood-glucose meter #1 ea 12/03/19 lancets 33 gauge #100 ea 12/03/19 docusate calcium [Stool Softener 240 mg PO BID #30 cap 02/04/20 (docusate robyn)] Allergies Allergy/AdvReac Type Severity Reaction Status Date / Time No Known Allergies Allergy Verified 02/04/20 07:25 General Stated Complaint: GenMedical SEJAL: 3 Review of Systems <Rommel Givens DO - Last Filed: 02/04/20 07:45> All systems reviewed & are unremarkable except as noted in HPI and below PFSH <Rommel Givens DO - Last Filed: 02/04/20 07:45> Medical History Age-related macular degeneration Atrial fibrillation Basal cell carcinoma of skin Nose; left ear 2020 Benign prostatic hypertrophy without outflow obstruction Deep vein thrombosis (DVT) of left lower extremity Diverticulosis of colon Essential hypertension GERD (gastroesophageal reflux disease) Hyperlipidemia Pulmonary embolism Bilateral pulmonary emboli in 2012 and 2018 Sensorineural hearing loss (SNHL) of both ears Hearing aids Type 2 diabetes mellitus Venous insufficiency of left leg Surgical History History of prostate surgery Thermal prostate ablation S/P cataract surgery (10/14/15) Left eye S/P right inguinal hernia repair (~1998) Family History Mother , 86 Essential hypertension Hyperlipidemia Father , PROSTATE at age 87. Hypertension Maternal Grandmother , 64 Stroke Brother Diabetes Essential hypertension Sister No problems noted. Brother , 24 No problems noted. Maternal Grandfather , 97 No problems noted. Paternal Grandfather , 80 No problems noted. Paternal Grandmother , 80 No problems noted. Social History Smoking/Tobacco Use Status: Never Second Hand Exposure: Yes Smoking risk assessment performed?: Yes Alcohol Intake: never Drug use: Never Substance use type: does not use Caregiver/Support person: No Household members: spouse Housing: condominium Communication Needs: Hard of Hearing Do you need help understanding health information?: Rarely Pets and animals: No Sexually active: Yes Do you think of yourself as: straight/heterosexual Current gender identity: male What is your relationship status?: How often do you talk on the phone with friends or family?: once per week How often do you get together with friends or relatives?: decline to answer How often do you attend mandaeism or sabianism services?: 1-3 times per year Do you belong to any clubs or organized social groups?: yes Panel score (0-1 are the most socially isolated patients): 2 What type of physical activity do you participate in: walking Duration: 30-45 minutes/day Frequency: 3-4 times per week Ruth/Muslim: Evangelical Special ruth needs: No Seatbelt use: always Helmet use: No Drive intox or ride w/intox lokie driver: No Do you feel safe in your relationship?: Yes Exam <Rommel Givens DO - Last Filed: 02/04/20 07:45> Narrative Exam Narrative: 1.Const: Well-nourished, Well-developed, appearing stated age 2.Eyes: PERRL, no conjunctival injection, and symmetrical lids. 3.ENT: Atraumatic external nose and ears. Moist MM. Neck: Symmetric, trachea midline, No thyromegaly. 4.CVS: +S1/S2, No murmurs or gallops. Peripheral pulses 2+ and equal in all extremities. Brisk capillary refill in all extremities. 5.RESP: Unlabored respiratory effort. Clear to auscultation bilaterally. No wheezes rales or rhonchi 6.GI: Soft, nontender, nondistended. Rectal exam was performed with nurse at bedside, rectal exam demonstrates a large stool ball which appears slightly soft. No evidence of rectal prolapse, no large hemorrhoids. 7.MSK: Normocephalic/Atraumatic, Extremities w/o deformity or ttp No cyanosis or clubbing, Normal movement of all extremities 8.Skin: Warm, Dry. No rashes or lesions. 9.Neuro: cartography technician II-XII grossly intact. Sensation grossly intact, no focal neurologic deficits. 10.Psych: (AAO) x3. Appropriate mood and affect Course <oRmmel Givens DO - Last Filed: 02/04/20 07:45> Vital Signs Vital signs: Vital Signs Temperature 36.4 C L 02/04/20 07:12 Pulse 60 02/04/20 07:12 Respiratory Rate 20 02/04/20 07:12 Blood Pressure 154/97 H 02/04/20 07:12 Pulse Oximetry 95 02/04/20 07:12 Temperature 36.4 C L 02/04/20 07:12 Temperature Source Skin 02/04/20 07:12 Pulse 60 02/04/20 07:12 Respiratory Rate 20 02/04/20 07:12 Respiratory Effort Non-Labored 02/04/20 07:24 Blood Pressure 154/97 H 02/04/20 07:12 Blood Pressure Position Sitting 02/04/20 07:12 Pulse Oximetry 95 02/04/20 07:12 Oxygen Delivery Method Room Air 02/04/20 07:12 Oxygen Flow Rate 0 02/04/20 07:12 Pain Level 6 02/04/20 07:12 Sign Out <Rommle Givens DO - Last Filed: 02/04/20 07:45> Sign Out Data: Sign Out Comment: Pending CT results and enema Last updated by Rommel Givens DO at 02/04/20 07:58
[2020-02-04 09:09] LABS: Bilirubin Negative (Negative); Blood Small (Negative); Clarity Sl Cloudy (Clear); Glucose Negative (Negative); Ketones Trace mg/dL (Negative); Leukocyte Esterase Negative (Negative); Nitrite Negative (Negative); Urobilinogen 0.2 EU/dL (Up TO 0.2)
[2020-02-04 09:38] LABS: WBC 0-2 HPF (0-5)
[2020-02-04 09:39] LABS: Bacteria Negative HPF (Negative); C & S Indicated? No; Casts Negative LPF (Negative); Crystals Negative HPF (Negative); Epithelial Cells Rare HPF (Negative); Mucus Trace (Negative)
[2020-02-04 09:43] VITALS: BP 155/72; PULSE 53; RESP 18; TEMP 36.4; O2SAT 95
== END 2020-02-04 09:51 | disposition home or self-care (01) ==
PROVIDERS: Student in an Organized Health Care Education/Training Program; Emergency Provider Emergency Medicine; PCP Nurse Practitioner Family
DX: K59.09 Other constipation (principal); I10 Essential (primary) hypertension; E11.9 Type 2 diabetes mellitus without complications; Z79.84 Long term (current) use of oral hypoglycemic drugs
CPT/HCPCS: 99284; 74176; 81003; 81015

== ENCOUNTER 2020-07-30 00:04 | Outpatient (CLI) | payer MEDICARE, SELFPAY ==
--- NOTE | 2020-07-30 12:15 | DI.US_ITS ---
Exam(s) US LOWER EXTREMITY VENOUS LT EXAM: US LOWER EXTREMITY VENOUS LT CLINICAL HISTORY: LLE swelling and redness, ? dvt,m79.89 TECHNIQUE: Left lower extremity venous ultrasound performed using grayscale, color-flow, and spectra l Doppler analysis. COMPARISON: No exams were available for comparison FINDINGS: The left common femoral, femoral and popliteal veins demonstrate normal compressibility, augmentation , and color Doppler. The posterior tibial veins are patent. The saphenofemoral junction is unremarka ble. There is no evidence of a Ureña cyst. There is localized edema in the subcutaneous tissues in the lateral aspect of the ankle. IMPRESSION: No DVT. DATA REPOSITORY:
== END 2020-07-30 00:24 ==
PROVIDERS: PCP Nurse Practitioner Family; Visit Provider Nurse Practitioner Family
DX: M25.472 Effusion, left ankle (principal)
CPT/HCPCS: 93971

== ENCOUNTER 2020-10-13 02:39 | Outpatient (CLI) | payer MEDICARE, SELFPAY ==
[2020-10-13 12:36] LABS: Anion Gap 10.1 mmol/L (3-11); BUN 22 mg/dL (7-18); CO2 24.9 mmol/L (21.0-32.0); CREATININE 1.1 mg/dL (0.70-1.30); Calcium 9.1 mg/dL (8.5-10.1); Chloride 105 mmol/L (98-107); Glucose 195 mg/dL (74-106); Potassium 4.3 mmol/L (3.5-5.1); Sodium 140 mmol/L (136-145)
[2020-10-13 12:58] LABS: Hemoglobin A1C 7.2 % (<5.7)
== END 2020-10-13 02:40 | disposition home or self-care (01) ==
LOC: LOS 02:39
PROVIDERS: PCP Nurse Practitioner Family; Visit Provider Nurse Practitioner Family
DX: E11.9 Type 2 diabetes mellitus without complications (principal)
CPT/HCPCS: 36415; 80048; 83036

== ENCOUNTER 2021-02-02 03:04 | Outpatient (CLI) | payer MEDICARE, SELFPAY ==
[2021-02-02 12:12] LABS: Calculated LDL 118 mg/dL (<100); Cholesterol 188 mg/dL (<200); HDL Cholesterol 39 mg/dL (40-60); Triglyceride 156 mg/dL (<150)
== END 2021-02-02 03:05 | disposition home or self-care (01) ==
LOC: LBO 03:04
PROVIDERS: PCP Nurse Practitioner Family; Visit Provider Nurse Practitioner Family
DX: E78.5 Hyperlipidemia, unspecified (principal)
CPT/HCPCS: 36415; 80061

== ENCOUNTER 2021-06-22 09:39 | Outpatient (CLI) | payer MEDICARE, SELFPAY ==
[2021-06-22 14:00] LABS: ALT 31 U/L (16-63); AST 31 U/L (15-37); Albumin 3.7 g/dL (3.4-5.0); Alkaline Phosphatase 89 U/L (46-116); Anion Gap 10.8 mmol/L (3-11); BUN 22 mg/dL (7-18); Bilirubin, Total 0.7 mg/dL (0.2-1.0); CO2 25.2 mmol/L (21.0-32.0); Calcium 8.8 mg/dL (8.5-10.1); Chloride 106 mmol/L (98-107); Glucose 257 mg/dL (74-106); Potassium 4.5 mmol/L (3.5-5.1); Sodium 142 mmol/L (136-145); Total Protein 7.1 g/dL (6.4-8.2)
== END 2021-06-22 09:40 | disposition home or self-care (01) ==
LOC: LOS 09:40
PROVIDERS: PCP Nurse Practitioner Family; Visit Provider Physician Assistant
DX: R60.0 Localized edema (principal)
CPT/HCPCS: 36415; 80053

== ENCOUNTER → 2021-06-23 00:45 | Outpatient (CLI) | payer MEDICARE, SELFPAY ==
--- NOTE | 2021-06-23 07:30 | DI.RAD_ITS ---
Exam(s) XR CHEST 2V PA LATERAL EXAM: XR CHEST 2V PA LATERAL CLINICAL HISTORY: peripheral edema,r60.9 TECHNIQUE: 2D digital imaging was performed. COMPARISON: CR XR CHEST 2V PA LATERAL from 01/21/2018 FINDINGS: The heart is not enlarged. The lungs are clear and well expanded. No pleural effusion seen. Mediastin al contours appear intact. IMPRESSION: Normal chest. RADIATION DOSE DELIVERED: Total DLP
--- NOTE | 2021-06-23 07:30 | DI.US_ITS ---
Exam(s) US EXTREMITY VENOUS BI EXAM: US EXTREMITY VENOUS BI CLINICAL HISTORY: r/o DVT,peripheral edema,r60.9. TECHNIQUE: Ultrasound performed using standard protocol. COMPARISON: US US LOWER EXTREMITY VENOUS LT from 07/30/2020 FINDINGS: Duplex venous ultrasound was performed according to the usual protocol. The deep veins are freely com pressible throughout and there is normal flow augmentation with manual calf compression. 2D and Doppl er evaluation are unremarkable. IMPRESSION: No evidence of deep venous thrombosis of the right or left lower extremity. DATA REPOSITORY:
== END ==
PROVIDERS: PCP Nurse Practitioner Family; Visit Provider Physician Assistant
DX: R60.0 Localized edema (principal); Z86.72 Personal history of thrombophlebitis
CPT/HCPCS: 71046; 93970

== ENCOUNTER 2021-07-08 01:33 | Outpatient (CLI) | payer MEDICARE, SELFPAY ==
[2021-07-08 12:31] LABS: Anion Gap 8.6 mmol/L (3-11); BUN 24 mg/dL (7-18); CO2 28.4 mmol/L (21.0-32.0); Calcium 9.7 mg/dL (8.5-10.1); Chloride 106 mmol/L (98-107); Glucose 155 mg/dL (74-106); Potassium 4.5 mmol/L (3.5-5.1); Sodium 143 mmol/L (136-145)
== END 2021-07-08 01:34 | disposition home or self-care (01) ==
LOC: LOS 01:33
PROVIDERS: PCP Nurse Practitioner Family; Visit Provider Family Medicine
DX: Z00.00 Encounter for general adult medical examination without abnormal findings (principal); E11.9 Type 2 diabetes mellitus without complications
CPT/HCPCS: 36415; 80048

== ENCOUNTER 2021-09-13 03:27 | Outpatient (CLI) | payer MEDICARE, SELFPAY ==
[2021-09-13 22:41] LABS: PSA, Screening 1.3 ng/mL (<=6.5)
== END 2021-09-13 03:28 | disposition home or self-care (01) ==
PROVIDERS: PCP Nurse Practitioner Family; Visit Provider Nurse Practitioner Family
DX: N40.0 Benign prostatic hyperplasia without lower urinary tract symptoms (principal); Z12.5 Encounter for screening for malignant neoplasm of prostate
CPT/HCPCS: 36415; 84153

== ENCOUNTER 2022-06-22 02:26 | Outpatient (CLI) | payer MEDICARE, SELFPAY ==
[2022-06-22 12:32] LABS: Hemoglobin A1C 7.8 % (<5.7)
[2022-06-22 12:49] LABS: Anion Gap 10.3 mmol/L (3-11); BUN 29 mg/dL (7-18); CO2 26.7 mmol/L (21.0-32.0); CREATININE 1.1 mg/dL (0.70-1.30); Calcium 9.3 mg/dL (8.5-10.1); Calculated LDL 112 mg/dL (<100); Chloride 106 mmol/L (98-107); Cholesterol 180 mg/dL (<200); Estimated GFR 64.97 (mL/min/1.73m2); Glucose 164 mg/dL (74-106); HDL Cholesterol 44 mg/dL (40-60); Potassium 4.5 mmol/L (3.5-5.1); Sodium 143 mmol/L (136-145); Triglyceride 124 mg/dL (<150)
== END 2022-06-22 02:27 | disposition home or self-care (01) ==
LOC: LOS 02:26
PROVIDERS: PCP Nurse Practitioner Family; Visit Provider Nurse Practitioner Family
DX: E78.5 Hyperlipidemia, unspecified (principal); I10 Essential (primary) hypertension; E11.9 Type 2 diabetes mellitus without complications
CPT/HCPCS: 36415; 80048; 80061; 83036

== ENCOUNTER 2022-07-24 10:24 | Outpatient (CLI) | payer MEDICARE, SELFPAY | END 2022-07-24 10:25 | disposition home or self-care (01) | PROVIDERS: PCP Nurse Practitioner Family; Visit Provider Nurse Practitioner Family | DX: I48.91 Unspecified atrial fibrillation (principal) | CPT/HCPCS: 93246 ==

== ENCOUNTER 2022-08-17 07:35 | Outpatient (CLI) | payer MEDICARE, SELFPAY ==
--- NOTE | 2022-08-17 12:39 | W.CARDEVENT ---
Date of service: 08/17/22 Time of Service: 12:39 Cardiac Event Recorder Referring Provider:: Monica Hollingsworth Indications:: Atrial fibrillation Cardiac Event Note: This is a 14-day cardiac event monitor ordered for atrial fibrillation Atrial fibrillation was present throughout with an average heart rate of 43. Minimum was 26 (during sleep), maximum 122 There were no pauses greater than 3 seconds There were occasional ventricular ectopic beats No patient symptoms were reported
== END 2022-08-17 07:36 | disposition home or self-care (01) ==
LOC: CARDOPNVT 07:35
PROVIDERS: PCP Nurse Practitioner Family; Visit Provider Internal Medicine Cardiovascular Disease
DX: I48.91 Unspecified atrial fibrillation (principal); I49.3 Ventricular premature depolarization
CPT/HCPCS: 93248

== ENCOUNTER → 2022-10-11 00:24 | Outpatient (CLI) | payer MEDICARE, SELFPAY ==
--- NOTE | 2022-10-11 07:45 | DI.US_ITS ---
APPROVED REPORT EXAM: Comprehensive 2D, Doppler, and color-flow Echocardiogram Patient Location: Out-Patient Rail Director: Sina Ventura RDCS (AE) Other Information Study Quality: Good Conclusion Mild concentric left ventricular hypertrophy. Ejection fraction is 55%. No segmental wall motion ab normalities are identified Normal right ventricular size and systolic function Both atria are moderately enlarged There are no structural valvular abnormalities There is mild mitral and tricuspid regurgitation Estimated right ventricular systolic pressure is 28 mmHg Dilated ascending aorta measuring 3.9 cm Patient was in a bradycardic and irregular rhythm throughout the study Wall motion Left Ventricle The left ventricle is normal size. Left ventricular systolic function is borderline. Mild concentric left ventricular hypertrophy. There are no segmental wall motion abnormalities There is no ventricula r septal defect visualized. LVEF is 55%. Right Ventricle The right ventricle is normal size. Right ventricular systolic function is grossly normal. The RVSP i s 28.2 mmHg. Atria Left atrium is moderately dilated. Right atrium is moderately dilated. The interatrial septum is inta ct with no evidence for an atrial septal defect. Aortic Valve The aortic valve is normal in structure. Aortic valve is trileaflet. There is no aortic valvular sten osis. No aortic regurgitation is present. Mitral Valve The mitral valve is normal in structure. No evidence of mitral valve stenosis. Mild mitral regurgitat ion. Tricuspid Valve The tricuspid valve is normal in structure. There is no tricuspid valve stenosis. Mild tricuspid regu rgitation. Pulmonic Valve The pulmonary valve is normal in structure. There is no pulmonic valvular stenosis. There is no pulmo taz valvular regurgitation. Great Vessels The aortic root is normal in size. The ascending aorta is mildly dilated. Aortic arch is normal in ca liber. IVC is normal in size and collapses >50% with inspiration. Pericardium There is no pericardial effusion. 2D Dimensions IVSD d PLAX 1.19 cm M: 0.6-1.2 Ao Root d 3.57 cm M: 3.1 - 3.7 LVPW d PLAX 1.18 cm M: 0.6 - 1.2 Ao Asc Diam d 3.90 cm M: 2.6 - 3.4 LVID d PLAX 4.93 cm M: 4.2 - 5.8 LVDs 3.56 cm M: 2.5 - 4.0 LV EF Teichholz 53.9 % FS 27.91 % LV EDV (Teich) 114.7 mL LV ESV (Teich) 52.9 mL Stroke Vol Index (Teich) 30.29 M-Mode TAPSE 1.91 cm (M/F) >1.7 Auto EF LV EDV A4C 138.0 mL LV EDV A2C 180.8 mL LV EDV BP 160.3 mL LV ESV A4C 67.4 mL LV ESV A2C 83.3 mL LV ESV BP 76.0 mL LVEF(%) A4C 51.2 % LVEF(%) A2C 54.0 % LVEF(%) BP 52.6 % LV SV A4C 70.6 ml LV SV A2C 97.6 ml LV SV BP 84.3 ml LV CO A4C 2.8 L/min LV CO A2C 3.5 L/min LV CO BP 3.2 L/min HR A4C 39.87 BPM HR A2C 36.07 BPM LV EDV Index (BP) LA Volume LA Length A4C 7.0 cm LA Length A2C LA Area A4C s 27.29 cm2 LA Area A2C s LA Vol A4C A-L 90.36 mL LA Vol A2C A-L LA Vol Biplane A-L LA Vol A4C MOD 88.7 mL LA Vol A2C MOD LA Vol BP MOD RA Volume RA Area A4C 23.0 cm2 RA ESV A4C (A-L) 73.7mL RA Vol/BSA A4C A-L RA Length A4C 6.1 cm RA ESV A4C (MOD) 69.8mL LV Diastology MV E' medial 0.077 (>0.07 m/s) MV E' lateral 0.103 (>0.1 m/s) Aortic Valve AoV Vmax 1.22 m/s LVOT Vmax 1.01 m/s AoV Peak Grad 6.0 mmHg LVOT Peak Grad 4.1 mmHg AoV Area (Vmax) 3.01 cm2 LVOT VTI 0.252 m AoV VTI 0.294 m LVOT Mean Grad 2.1 mmHg AoV Mean Pineda. 0.84 m/s LVOT SV 91.78 mL AoV Mean Grad 3.2 mmHg LVOT Diam s 2.15 cm AoV Area (VTI) 3.12 cm2 Velocity Ratio 0.83 Pulmonary Valve PV Vmax 0.96 (0.5-1.5 m/s) RVOT Vmax 0.50 m/s PV Peak Grad 3.7 mmHg RVOT Peak Gr. 1.0 mmHg PV Mean Pineda 0.60 m/s RVOT VTI 0.141 m PV Mean Grad 1.7 mmHg RVOT Mean Gr. 0.6 mmHg Tricuspid Valve RA Pressure 3.00 mmHg TR Vmax 2.51 m/s TR Peak Grad 25.1 mmHg RVSP (TR) 28.2 mmHg
== END ==
PROVIDERS: PCP Nurse Practitioner Family; Visit Provider Nurse Practitioner Family
DX: I48.21 Permanent atrial fibrillation (principal)
CPT/HCPCS: 93306

== ENCOUNTER 2022-10-17 02:28 | Outpatient (CLI) | payer MEDICARE, SELFPAY ==
[2022-10-17 13:12] LABS: Calculated LDL 82 mg/dL (<100); Cholesterol 148 mg/dL (<200); HDL Cholesterol 42 mg/dL (40-60); Triglyceride 121 mg/dL (<150)
[2022-10-17 13:49] LABS: Hemoglobin A1C 7.1 % (<5.7)
== END 2022-10-17 02:29 | disposition home or self-care (01) ==
LOC: LOS 02:28
PROVIDERS: PCP Nurse Practitioner Family; Visit Provider Nurse Practitioner Family
DX: E11.9 Type 2 diabetes mellitus without complications (principal); E78.5 Hyperlipidemia, unspecified
CPT/HCPCS: 36415; 80061; 83036

== ENCOUNTER 2023-04-18 04:57 | Outpatient (CLI) | payer MEDICARE, SELFPAY ==
[2023-04-18 12:24] LABS: Abs Immature Grans 0.03 10^3/uL (0.0-0.06); Absolute Basophil Count 0.04 10^3/uL (0.0-0.2); Absolute Eosinophil Count 0.12 10^3/uL (0.0-0.7); Absolute Neutrophil Count 3.83 10^3/uL (1.2-6.7); Basophils % 0.6; Eosinophils % 1.7; HCT 43.3 % (40.0-50.0); HGB 14.3 g/dL (13.5-17.5); Immature Grans % 0.4; Lymphocytes % 33.2; MCH 29.1 pg (27.0-33.0); MCV 88 fL (80-95); MPV 11.5 fL (8.0-11.0); Monocytes % 8.7; Neutrophils % 55.4; Platelet Count 168 10^3/uL (130-400); RBC 4.91 10^6/uL (4.36-5.78); RDW 13.2 % (11.8-14.1); RDW-SD 42.9 fL; WBC 6.92 10^3/uL (4.4-10.8)
[2023-04-18 13:07] LABS: Hemoglobin A1C 7.6 % (<5.7)
[2023-04-18 17:19] LABS: ALT 26 U/L (16-63); AST 28 U/L (15-37); Albumin 3.9 g/dL (3.4-5.0); Alkaline Phosphatase 83 U/L (46-116); Anion Gap 11.4 mmol/L (3-11); BUN 27 mg/dL (7-18); Bilirubin, Total 0.6 mg/dL (0.2-1.0); CO2 25.6 mmol/L (21.0-32.0); CREATININE 1.3 mg/dL (0.70-1.30); Calcium 9.8 mg/dL (8.5-10.1); Calculated LDL 89 mg/dL (<100); Chloride 104 mmol/L (98-107); Cholesterol 160 mg/dL (<200); Estimated GFR 53.17 (mL/min/1.73m2); Glucose 160 mg/dL (74-106); HDL Cholesterol 45 mg/dL (40-60); Magnesium 1.6 mg/dL (1.8-2.4); Potassium 4.9 mmol/L (3.5-5.1); Sodium 141 mmol/L (136-145); Total Protein 7.2 g/dL (6.4-8.2); Triglyceride 132 mg/dL (<150); Vitamin B12 199 pg/mL (193-986)
[2023-04-18 17:34] LABS: PSA, Screening 0.9 ng/mL (<=6.5)
[2023-04-18 18:16] LABS: Hepatitis C Ab w Rflx HCV PCR Negative (Negative)
== END 2023-04-18 04:58 | disposition home or self-care (01) ==
LOC: LOS 04:57
PROVIDERS: PCP Nurse Practitioner Family; Visit Provider Nurse Practitioner Family
DX: E11.40 Type 2 diabetes mellitus with diabetic neuropathy, unspecified (principal); I10 Essential (primary) hypertension; E78.5 Hyperlipidemia, unspecified; K21.9 Gastro-esophageal reflux disease without esophagitis; Z12.5 Encounter for screening for malignant neoplasm of prostate
CPT/HCPCS: 36415; 80053; 80061; 84153; 86803; 82607; 83036; 83735; 85025

== ENCOUNTER 2023-05-04 12:19 | Outpatient (REF) | payer MEDICARE, SELFPAY ==
--- NOTE | 2023-05-04 11:15 | SKI_PTH ---
PATIENT: Eleno Weaver LOC: [facility] U#:[id number] AGE/SX: 88/M ROOM: RE05/04/[address]: REX Hernández : 1935 BED: DIS: 05/04/2023 SPEC #: [id number] RECD: 05/04/23 17:26 STATUS: SHELDON FOSTER #: [id number] FERNIE: 05/04/23 11:[address]: Haim Yi DEPT: Surgical Specimen RECD BY: Keyana Powers ENTERED: 05/04/23 17:27 SP TYPE: LUCA MERRITT DR: AJ Scott Tissues: 1 - SKIN BIOPSY(SHAVE/PUNCH) Procedures: SKIN LEVEL 4 Comments: [id number]
== END 2023-05-04 12:20 | disposition home or self-care (01) ==
LOC: LBN 12:19
PROVIDERS: PCP Nurse Practitioner Family; Visit Provider Physician Assistant
DX: L82.1 Other seborrheic keratosis (principal)
CPT/HCPCS: 88305

== ENCOUNTER 2024-01-18 01:04 | Outpatient (CLI) | payer MEDICARE, SELFPAY ==
[2024-01-18 13:01] LABS: Anion Gap 8.6 mmol/L (3-11); BUN 40 mg/dL (7-18); CO2 24.4 mmol/L (21.0-32.0); CREATININE 1.5 mg/dL (0.70-1.30); Chloride 106 mmol/L (98-107); Glucose 165 mg/dL (74-106); Potassium 5.5 mmol/L (3.5-5.1); Sodium 139 mmol/L (136-145)
[2024-01-18 13:13] LABS: Hemoglobin A1C 7.5 % (<5.7)
[2024-01-18 13:15] LABS: COMMENT (LAB VIEW ONLY) 92.82 mg/dL; Microalb ug/mg Crea 55.7 ug/mg Cr
[2024-01-18 19:26] LABS: HIV-1/2 Ag & Ab Screen Negative (Negative)
[2024-01-18 19:44] LABS: HBs Antibody, Quant <3.1 mIU/mL (See Note); Hep B Surface Ab Negative (See Note); Hepatitis B Core Antibody Negative (Negative); Hepatitis B Surface Antigen Negative (Negative)
== END 2024-01-18 01:05 | disposition home or self-care (01) ==
LOC: LOS 01:04
PROVIDERS: PCP Nurse Practitioner Family; Visit Provider Nurse Practitioner Family
DX: Z11.59 Encounter for screening for other viral diseases (principal); E11.40 Type 2 diabetes mellitus with diabetic neuropathy, unspecified; Z11.4 Encounter for screening for human immunodeficiency virus [HIV]; I10 Essential (primary) hypertension
CPT/HCPCS: 36415; 80048; 86704; 86706; 87340; 87389; 82043; 82570; 83036

== ENCOUNTER 2024-02-15 01:32 | Outpatient (CLI) | payer MEDICARE, SELFPAY ==
[2024-02-15 12:25] LABS: Anion Gap 6.2 mmol/L (3-11); BUN 31 mg/dL (7-18); CO2 28.8 mmol/L (21.0-32.0); CREATININE 1.4 mg/dL (0.70-1.30); Calcium 10.3 mg/dL (8.5-10.1); Chloride 104 mmol/L (98-107); Estimated GFR 48.34 (mL/min/1.73m2); Glucose 130 mg/dL (74-106); Potassium 5.1 mmol/L (3.5-5.1); Sodium 139 mmol/L (136-145)
== END 2024-02-15 01:33 | disposition home or self-care (01) ==
LOC: LOS 01:33
PROVIDERS: PCP Nurse Practitioner Family; Visit Provider Nurse Practitioner Family
DX: E87.5 Hyperkalemia (principal)
CPT/HCPCS: 36415; 80048

== ENCOUNTER 2024-09-16 02:30 | Outpatient (CLI) | payer MEDICARE, SELFPAY ==
--- NOTE | 2024-09-16 07:30 | DI.US_ITS ---
Exam(s) US BREAST RT COMPLETE MAMMO DIAGNOSTIC BI EXAM: MAMMO DIAGNOSTIC BI and U/S breast RT complete CLINICAL HISTORY: Characterize swelling, ? gynecomastia,lump rt breast,n63.10,n63.0. TECHNIQUE: Craniocaudal and mediolateral oblique Full Field Digital Mammography views with Computer Aided Diagnosis followed by Tomosynthesis and complete right breast ultrasound. A complete right breast ultrasound was performed which includes all 4 quadrants, the right axilla and right retroareolar region. COMPARISON: There are no priors for comparison. FINDINGS: Mammography/Tomosynthesis: Masses/Architectural Distortion: There is tissue seen in the retroareolar regions bilaterally, right greater than left consistent with gynecomastia. There is an asymmetric density in the medial right breast on the craniocaudad view which does not persist with spot compression. Microcalcifictions: No suspicious pleomorphic-type are seen. Skin Thickening/Nipple Retraction: None. Complete right breast US: Echotexture: Normal appearance of the glandular tissue. Shadowing: No suspicious foci. Cyst: None. Solid lesions: None seen. Ductal dilation: None. IMPRESSION: 1. No evidence of malignancy is noted. 2. Findings are consistent with gynecomastia. 3. The findings were discussed with the patient on the date of the examination. BI-RADS Category 2 - Benign Findings Breast Density - Category B - There are scattered areas of fibroglandular density. Breast density Category C or D implies that the patient has dense breast tissue. Dense breast tissue can make it harder to find cancer on a mammogram. Dense breast tissue is also associated with an increased risk of breast cancer. This information about the result of the mammogram report was provided to the patient to raise their awareness. Use this report when you speak with the patient about their risks for breast cancer, which includes their family history. At that time, you may recommend additional screening tests (Ultrasound or MRI) as these tests may add significant information. A negative radiographic report should not delay biopsy if a dominant or clinically suspicious mass is present. Up to ten percent of cancers are not identified on mammography. A negative report may reinforce clinical impression. Adenosis and dense breasts may obscure an underlying neoplasm. False positive reports average 6 to 10%. Patient will receive a letter notifying them of these results.
== END 2024-09-16 02:50 ==
LOC: DI 02:30
PROVIDERS: PCP Nurse Practitioner Family; Visit Provider Family Medicine
DX: Z12.31 Encounter for screening mammogram for malignant neoplasm of breast (principal); N62 Hypertrophy of breast
CPT/HCPCS: 76642; 77062; 77066; G0279

== ENCOUNTER 2024-09-19 01:13 | Outpatient (CLI) | payer MEDICARE, SELFPAY ==
[2024-09-19 12:21] LABS: HCT 42.1 % (40.0-50.0); HGB 13.4 g/dL (13.5-17.5); MCH 27.7 pg (27.0-33.0); MCHC 31.8 % (32.0-36.0); MCV 87 fL (80-95); MPV 11.2 fL (8.0-11.0); Platelet Count 151 10^3/uL (130-400); RBC 4.84 10^6/uL (4.36-5.78); RDW 13.4 % (11.8-14.1); RDW-SD 42.5 fL; WBC 6.49 10^3/uL (4.4-10.8)
[2024-09-19 12:36] LABS: Anion Gap 9.4 mmol/L (3-11); BUN 28 mg/dL (7-18); CO2 25.6 mmol/L (21.0-32.0); Calcium 9.3 mg/dL (8.5-10.1); Chloride 105 mmol/L (98-107); Estimated GFR 64.17 (mL/min/1.73m2); Glucose 151 mg/dL (74-106); Magnesium 1.5 mg/dL (1.8-2.4); Potassium 4.7 mmol/L (3.5-5.1); Sodium 140 mmol/L (136-145)
[2024-09-19 12:40] LABS: Hemoglobin A1C 7.6 % (<5.7)
== END 2024-09-19 01:14 | disposition home or self-care (01) ==
LOC: LOS 01:14
PROVIDERS: PCP Nurse Practitioner Family; Visit Provider Nurse Practitioner Family
DX: I48.91 Unspecified atrial fibrillation (principal); E11.40 Type 2 diabetes mellitus with diabetic neuropathy, unspecified
CPT/HCPCS: 36415; 80048; 85027; 83036; 83735